=== PATIENT | male | born 1975 | race Native Hawaiian/Other Pacific Islander ===

== ENCOUNTER 2024-02-09 19:32 | Emergency (ER) | payer OTHER ==
--- NOTE | 2024-02-09 20:01 | ER ---
Nurse's Notes [facility] Name: Hemal Lang Age: 48 yrs Sex: Male : 1975 Arrival Date: 02/09/2024 Time: 19:32 Bed 8 Private MD: Diagnosis: Anasarca;Hypoxia Presentation: 02/08 19:24 Chief complaint: EMS states: c/o pain all over. Normally takes tylenol 3 for pain but me1 he is out. Room air o2 sat was 90%, administered o2 at \T\ LPM via NC to bring sat to 96%. Coronavirus screen: Vaccine status: Patient reports being unvaccinated. Ebola Screen: No symptoms or risks identified at this time. Initial Sepsis Screen: Does the patient meet any 2 criteria? Yes No. Patient's initial sepsis screen is negative. Does the patient have a suspected source of infection? No. Patient's initial sepsis screen is negative. Risk Assessment: Do you want to hurt yourself or someone else? Patient reports no desire to harm self or others. Onset of symptoms is unknown. 19:24 Method Of Arrival: [place] [facility] [place] Acuity: ANNIE 4 me1 Triage Assessment: 19:38 General: Appears uncomfortable, obese, unkempt, well developed, Behavior is me1 cooperative, appropriate for age, anxious, restless, Reports He ran out of his normal pain meds, tylenol 3, and has pain all over that has become unbearable. Pain: Complains of pain in generalized Pain does not radiate. Pain currently is 10 out of 10 on a pain scale. Quality of pain is described as aching, Pain began 2-3 days ago. Is continuous. EENT: No signs and/or symptoms were reported regarding the EENT system. Neuro: Level of Consciousness is awake, alert, obeys commands, Oriented to person, place, time, situation, Appropriate for age. Cardiovascular: Patient's skin is warm and dry. Respiratory: Airway is patent Trachea midline Respiratory effort is even, unlabored, Respiratory pattern is regular, symmetrical. GI: No signs and/or symptoms were reported involving the gastrointestinal system. : No signs and/or symptoms were reported regarding the genitourinary system. Derm: Skin is healthy with good turgor, Skin is pink, warm \T\ dry. Musculoskeletal: Amputation of Right AKA, L BKA. Reports pain in generalized. Historical: - Allergies: 19:38 PENICILLINS; me1 19:38 Amoxicillin; me1 - PMHx: 19:38 Congestive heart failure; Diabetes mellitus; me1 - PSHx: 19:38 right AKA; L BKA; me1 - Immunization history:: Adult Immunizations unknown. - Infectious Disease History:: Denies. - Social history:: Smoking status: Patient/guardian denies using tobacco, but has a distant history of tobacco abuse. - Family history:: not pertinent. Screenin:42 [facility] ED Fall Risk Assessment (Adult) History of falling in the last 3 months, me1 including since admission No falls in past 3 months (0 pts) Confusion or Disorientation No (0 pts) Intoxicated or Sedated No (0 pts) Impaired Gait Yes (1 pt) Mobility Assist Device Used Yes (1 pt) Altered Elimination Yes (1 pt) Score/Fall Risk Level 3 or more points = High Risk Maintained a safe environment, Hourly rounding (assess needs \T\ fall precautionary measures) done, Used ambulatory aids as needed (educated on \T\ assisted with). Abuse screen: Denies threats or abuse. Nutritional screening: No deficits noted. Tuberculosis screening: No symptoms or risk factors identified. Assessment: 19:43 General: See triage assessment. . me1 21:59 General: Report given to ELINOR Rodriguez. me1 Vital Signs: 19:24 BP 104 / 79; Pulse 99; Resp 19; Temp 97.9(TE); Pulse Ox 96% 2 lpm ; Weight 242.22 kg; me1 Height 5 ft. 9 in. ; Pain 10/10; 20:00 BP 119 / 73; Pulse 96; Resp 20; Pulse Ox 90% on R/A; me1 21:00 BP 142 / 72; Pulse 106; Resp 21; Pulse Ox 90% on R/A; me1 21:18 Pulse Ox 98% on 3 lpm NC; me1 21:21 Pulse Ox 98% on 3 lpm NC; me1 21:30 BP 141 / 78; Pulse 111; Resp 22; Pulse Ox 98% on 3 lpm NC; me1 22:00 BP 139 / 85; Pulse 110; Resp 15; Temp 98.1; Pulse Ox 100% on 3 lpm NC; me1 19:24 Body Mass Index 78.86 (242.22 kg, 175.26 cm) me1 19:24 Pain Scale: [place] [facility] [place] Course: 19:34 Patient arrived in ED. me1 19:34 Armando Lopez MD is Attending Physician. rt 19:38 Triage completed. me1 19:38 Arm band placed on Patient placed in an exam room. me1 19:42 Patient has correct armband on for positive identification. Bed in low position. Call vt1 light in reach. Side rails up X2. Provided Education on: POC. Verbalized understanding. . Client placed on continuous cardiac and pulse oximetry monitoring. NIBP monitoring applied. Pulse ox on. NIBP on. 19:42 No provider procedures requiring assistance completed. me1 19:54 Vanessa Westfall, ELINOR is Primary Nurse. me1 20:04 EKG done, by ED staff, reviewed by Armando Lopez MD. me1 20:07 Inserted saline lock: 20 gauge in right antecubital area, using aseptic technique. rc3 Blood collected. 20:08 Basic Metabolic Panel Sent. rc3 20:08 CBC with Diff Sent. rc3 20:08 LFT's Sent. rc3 20:08 Magnesium Sent. rc3 20:08 NT PRO-BNP Sent. rc3 20:08 Troponin HS Sent. rc3 20:14 XRAY Chest (1 view) In Process Unspecified. EDMS 20:46 initiated transfer lori Walsh\[facility]. kmf 21:13 doc to doc. kmf 21:33 Antonio cath inserted, using sterile technique, 18 Fr., by vt, balloon inflated, to [facility] gravity drainage, Patient tolerated well. 22:31 Patient transferred, IV remains in place. [facility] 02/[place] 00:[address] [facility]. Admin approval given by lori \Biju\[id number]. Dr. Reynaga accepted \T\ f 2123. Number for nurse to nurse report [phone]. [facility] room 1054. [facility] to transfer . Administered Medications: 02/08 20:17 Drug: Furosemide IVP 40 mg IVP once; give over 2 minutes Route: IVP; Site: right vt1 antecubital; 21:20 Follow up: Response: No adverse reaction; Pain is decreased [facility] 20:17 Drug: [place] PO 10 mg-325 mg 1 tabs PO once Route: PO; me1 21:18 Follow up: Pulse Ox 98% 3 lpm Nasal Cannula me1 Medication: 19:44 VIS not applicable for this client. me1 Outcome: 20:01 Discharge ordered by . rt 20:47 ER care complete, transfer ordered by MD. rt 22:31 Transferred by ground EMS to [facility], Transfer form completed. me1 22:31 Condition: stable 22:31 Instructed on the need for transfer, 22:32 Patient left the ED. me1 Signatures: Dispatcher [employer] EDArmando Webb MD MD rt Vanessa Westfall RN RN me1 Lili Batista [facility] Vanna Sloan 3 Corrections: (The following items were deleted from the chart) 21:21 21:18 Response: No adverse reaction me1 me1
--- NOTE | 2024-02-09 20:01 | EDPHYS ---
Physician Documentation [facility] Name: Hemal Lang Age: 48 yrs Sex: Male : 1975 Arrival Date: 02/09/2024 Time: 19:32 Bed 8 Private MD: ED Physician Armando Lopez HPI: 02/08 20:47 This 48 yrs old Male presents to ER via EMS with complaints of Pain All Over. rt 20:47 Patient presents to the ED with worsening jaw swelling, pain. Patient reportedly had rt hypoxia. Sats were 89 to 90% on room air, correcting with supplemental O2. Patient states that his Bumex, metolazone has not been adequately diuresing him. Denies other acute complaints at this time, symptoms are moderate in severity, no other aggravating or alleviating factors.. Historical: - Allergies: 19:38 PENICILLINS; me1 19:38 Amoxicillin; me1 - PMHx: 19:38 Congestive heart failure; Diabetes mellitus; me1 - PSHx: 19:38 right AKA; L BKA; me1 - Immunization history:: Adult Immunizations unknown. - Infectious Disease History:: Denies. - Social history:: Smoking status: Patient/guardian denies using tobacco, but has a distant history of tobacco abuse. - Family history:: not pertinent. ROS: 20:47 Constitutional: Negative for fever, chills, and weight loss, Abdomen/GI: Negative for rt abdominal pain, nausea, vomiting, diarrhea, and constipation, MS/Extremity: Negative for injury and deformity, 20:47 Cardiovascular: Positive for edema, Negative for chest pain, 20:47 Respiratory: Positive for cough, shortness of breath, Exam: 20:47 Constitutional: This is a well developed, well nourished patient who is awake, alert, rt and in no acute distress. Head/Face: Normocephalic, atraumatic. Chest/axilla: Normal chest wall appearance and motion. Nontender with no deformity. No lesions are appreciated. 20:47 ECG was reviewed by the Attending Physician. 20:47 Respiratory: Bibasilar crackles, 20:47 Abdomen/GI: Edema with skin changes to the abdominal wall, 20:47 Musculoskeletal/extremity: Bilateral BKA's, edema noted to the lower extremities. 20:47 Skin: Edematous regions of skin are leaking clear fluid. Vital Signs: 19:24 BP 104 / 79; Pulse 99; Resp 19; Temp 97.9(TE); Pulse Ox 96% 2 lpm ; Weight 242.22 kg; me1 Height 5 ft. 9 in. ; Pain 10/10; 20:00 BP 119 / 73; Pulse 96; Resp 20; Pulse Ox 90% on R/A; me1 21:00 BP 142 / 72; Pulse 106; Resp 21; Pulse Ox 90% on R/A; me1 21:18 Pulse Ox 98% on 3 lpm NC; me1 21:21 Pulse Ox 98% on 3 lpm NC; me1 21:30 BP 141 / 78; Pulse 111; Resp 22; Pulse Ox 98% on 3 lpm NC; me1 22:00 BP 139 / 85; Pulse 110; Resp 15; Temp 98.1; Pulse Ox 100% on 3 lpm NC; me1 19:24 Body Mass Index 78.86 (242.22 kg, 175.26 cm) me1 19:24 Pain Scale: Adult me1 MDM: 19:44 Patient medically screened. rt 20:47 Differential Diagnosis CHF, anasarca, pulmonary edema. Data reviewed: vital signs, rt nurses notes, lab test result(s), EKG, radiologic studies. Consideration of Admission/Observation Patient requires transfer due to weather event. I considered the following discharge prescriptions or medication management in the emergency department Medications were administered in the Emergency Department. See MAR. Independent interpretation of the following test(s) in the Emergency Department X-Ray: My interpretation is Pulmonary edema seen on interpretation of x-ray images. Test considered but Not performed: CT: Low suspicion for PE, CT angiogram not indicated. Care significantly affected by the following chronic conditions: CHF, diabetes, A-fib. Counseling: I had a detailed discussion with the patient and/or guardian regarding the historical points, exam findings, and any diagnostic results supporting the discharge/admit diagnosis, lab results, radiology results, the need to transfer to another facility. Response to treatment: There is no appreciated change of the patient's symptoms at this time. 02/08 19:50 Order name: Basic Metabolic Panel; Complete Time: 20:35 rt 02/08 19:50 Order name: CBC with Diff; Complete Time: 20:30 rt 02/08 19:50 Order name: LFT's; Complete Time: 20:35 rt 02/08 19:50 Order name: Magnesium; Complete Time: 20:35 rt 02/08 19:50 Order name: NT PRO-BNP; Complete Time: 20:35 rt 02/08 19:50 Order name: Troponin HS; Complete Time: 20:35 rt 02/08 19:50 Order name: XRAY Chest (1 view); Complete Time: 20:42 rt 02/08 19:50 Order name: Cardiac monitoring; Complete Time: 20:04 rt 02/08 19:50 Order name: EKG - Nurse/Tech; Complete Time: 20:04 rt 02/08 19:50 Order name: IV Saline Lock; Complete Time: 20:08 rt 02/08 19:50 Order name: Labs collected and sent; Complete Time: 20:08 rt 02/08 19:50 Order name: O2 Per Protocol; Complete Time: 20:04 rt 02/08 19:50 Order name: O2 Sat Monitoring; Complete Time: 20:04 rt 02/08 20:05 Order name: Antonio; Complete Time: 21:33 rt EC:47 Rate is 100 beats/min. Rhythm is regular, A fib with No ectopy, Right bundle branch rt block. QRS [place] is Normal. QRS interval is normal. QT interval is normal. Administered Medications: 20:17 Drug: Furosemide IVP 40 mg IVP once; give over 2 minutes Route: IVP; Site: right me1 antecubital; 21:20 Follow up: Response: No adverse reaction; Pain is decreased me1 20:17 Drug: [place] PO 10 mg-325 mg 1 tabs PO once Route: PO; me1 21:18 Follow up: Pulse Ox 98% 3 lpm Nasal Cannula me1 Disposition Summary: 02/09/24 20:47 Transfer Ordered Notes: Transfer Location: [facility] rt Reason: Higher level of care rt Condition: Stable(02/09/24 20:47) rt Problem: an ongoing problem(02/09/24 20:47) rt Symptoms: are unchanged(02/09/24 20:47) rt Accepting Physician: (02/09/24 22:32) me1 Diagnosis - Anasarca rt - Hypoxia rt Forms: - Medication Reconciliation Form rt - SBAR form rt Signatures: Dispatcher [employer] EDMS Armando Lopez MD MD rt Vanessa Westfall, RN RN me1 Corrections: (The following items were deleted from the chart) 19:51 19:51 BASIC METABOLIC PANEL+C.LAB.BRZ ordered. EDMS EDMS 19:51 19:51 CBC+H.LAB.BRZ ordered. EDMS EDMS 19:51 19:51 HEPATIC FUNCTION+C.LAB.BRZ ordered. EDMS EDMS 19:51 19:51 MAGNESIUM+C.LAB.BRZ ordered. EDMS EDMS 19:51 19:51 PROBNP+C.LAB.BRZ ordered. EDMS EDMS 19:51 19:51 Troponin High Sensitivity+C.LAB.BRZ ordered. EDMS EDMS 19:51 19:51 Chest Single View+RAD.RAD.BRZ ordered. EDMS EDMS 20:01 20:01 Home rt rt 20:01 20:01 new rt rt 20:01 20:01 have improved rt rt 20:01 20:01 Stable rt rt 20:01 20:01 Heat exhaustion, unspecified rt rt 22:32 20:47 Dr. rt me1
[2024-02-09] MEDS ORDERED: FUROSEMIDE 40 MG/4 ML VIAL ONE (20:08)
[2024-02-09] MEDS ORDERED: HYDROCODONE/APAP 10/325 TAB ONE (20:08)
[2024-02-09 20:14] LABS: Absolute Basophils 0.1 K/uL (0-0.5); Absolute Eosinophils 0.1 K/uL (0-0.5); Absolute Lymphocytes (CBC) 0.5 K/uL (0.7-4.9); Absolute Neutrophil 7.9 K/uL (1.8-8.0); Eosinophils % 1.4 % (0-4.4); Hematocrit 32.7 % (39.6-49.0); Hemoglobin 10.3 g/dL (13.6-17.9); MCH 26.4 pg (27.0-35.0); MCHC 31.6 g/dL (32.0-36.0); MCV 83.7 fL (80-100); MPV 8.6 fL (7.6-11.3); Monocytes % 10.5 % (3.3-12.3); Neutrophils % 82.1 % (41.7-73.7); Platelets 136 thou/uL (152-406); Red Cell Distribution Width 17.1 % (12.1-15.2)
[2024-02-09 20:34] LABS: Albumin 2.1 g/dL (3.4-5.0); Albumin/Globulin Ratio 0.5 (1.1-1.8); Anion Gap 6.4 mEq/L (5.0-15.0); Bilirubin Direct 0.3 mg/dL (0-0.2); Bilirubin Indirect, Calculated 0.2 mg/dL (0.2-0.8); Bilirubin Total 0.5 mg/dL (0.2-1.0); Globulin 4.5 g/dL (2.3-3.5); Potassium 3.4 mEq/L (3.5-5.1); Protein, Total 6.6 g/dL (6.4-8.2); Troponin High Sensitivity 16.8 pg/mL (<58.9)
--- NOTE | 2024-02-09 20:40 | RAD REPORT ---
EXAM DESCRIPTION: Massimo Single View02/09/2024 8:12 pm CLINICAL HISTORY: Chest pain COMPARISON: none FINDINGS: Pulmonary vascular congestion is present. The lungs appear clear of acute infiltrate Heart is mildly to moderately enlarged
[2024-02-09 23:14] VITALS: BP 139/85; TEMP 98.1; O2SAT 100
--- NOTE | 2024-02-12 12:17 | EKG ---
Test Date: 2024-02-09 Test Time: 20:01:00 Press Setup Operator: MEASUREMENT RESULTS: Intervals: Rate: 100 AK: QRSD: 102 QT: 394 QTc: 508 [place]: P: AK: QRS: 222 T: 110 INTERPRETIVE STATEMENTS: Atrial fibrillation Right superior axis deviation Incomplete right bundle branch block Right ventricular hypertrophy Septal infarct, age undetermined Prolonged QT Abnormal ECG No previous ECG available for comparison Electronically Signed On 02-12-24 12:12:36 CDT by Hamilton Berrios
== END 2024-02-09 22:32 | disposition short-term general hospital (02) ==
LOC: ER 19:32
DX: R60.1 Generalized edema (principal); R09.02 Hypoxemia; E11.9 Type 2 diabetes mellitus without complications; Z88.0 Allergy status to penicillin
CPT/HCPCS: 93005; 85025; 80048; 36415; 83735; 80076; 84484; 83880; 71045; 51702; 96374; 99285; J1940

== ENCOUNTER 2024-04-03 21:41 | Inpatient (IN) | payer OTHER ==
[2024-04-03 23:12] LABS: Sqamous Epithelial <5 /HPF (None Seen); Urine Bacteria None Seen /HPF (<20); Urine Crystals Unidentified Few /HPF (None Seen); Urine Culture Reflex Order NOT NEEDED; Urine RBC <5 /HPF (None Seen); Urine WBC None Seen /HPF (<5)
[2024-04-03] MEDS ORDERED: CEFTRIAXONE 1000 MG/VIAL ONE (23:13)
[2024-04-03] MEDS ORDERED: metroNIDAZOLE 500 MG TABLET ONE (23:14)
[2024-04-03] MEDS ORDERED: FUROSEMIDE 20 MG/ 2ML VIAL ONE (23:14)
[2024-04-03] MEDS ORDERED: FUROSEMIDE 40 MG/4 ML VIAL ONE (23:14)
[2024-04-03] MEDS ORDERED: FLUCONAZOLE 100 MG TAB ONE (23:14)
[2024-04-03] MEDS ORDERED: MUPIROCIN 2% OINT 22GM TUBE TOP ONE (23:14)
[2024-04-03] MEDS ORDERED: METRONIDAZOLE 500mg IVPB 500 MG/100 ML BAG IV ONE (23:15)
[2024-04-03 23:16] LABS: PT Prothrombin Time 13.9 SECONDS (9.4-12.5); PTT, Activated Partial Thromb 34.1 SECONDS (24.3-36.9); Protime INR 1.25
[2024-04-03 23:16] LABS: Specific Gravity 1.008 (1.005-1.030); Urine Bilirubin NEGATIVE (Negative); Urine Blood Negative (Negative); Urine Clarity Clear (Clear); Urine Color Colorless (Yellow); Urine Glucose NEGATIVE (Negative); Urine Ketones NEGATIVE (Negative); Urine Microscopic Reflex YN NO UMIC; Urine Nitrite NEGATIVE (Negative); Urine Protein NEGATIVE (Negative); Urine Urobilinogen Normal (Normal); Urine pH 6.5 (5.0-7.0)
[2024-04-03 23:20] LABS: Absolute Basophils 0.1 K/uL (0-0.5); Absolute Eosinophils 0.3 K/uL (0-0.5); Absolute Lymphocytes (CBC) 0.5 K/uL (0.7-4.9); Absolute Monocytes 0.6 K/uL (0.1-1.3); Absolute Neutrophil 3.6 K/uL (1.8-8.0); Eosinophils % 5.5 % (0-4.4); Hemoglobin 9.2 g/dL (13.6-17.9); Lymphocytes % 10.8 % (15.3-44.8); MCH 26.4 pg (27.0-35.0); MCHC 31.5 g/dL (32.0-36.0); MCV 83.8 fL (80-100); MPV 9.3 fL (7.6-11.3); Monocytes % 11.6 % (3.3-12.3); Neutrophils % 71.1 % (41.7-73.7); Platelets 152 thou/uL (152-406); RBC Red Blood Cell Count 3.46 M/uL (4.33-5.43); Red Cell Distribution Width 18.3 % (12.1-15.2)
[2024-04-03 23:35] LABS: Albumin 1.8 g/dL (3.4-5.0); Albumin/Globulin Ratio 0.4 (1.1-1.8); Anion Gap 5.6 mEq/L (5.0-15.0); Bilirubin Total 0.6 mg/dL (0.2-1.0); C-Reactive Protein 13.2 mg/L (<3.00); Globulin 4.5 g/dL (2.3-3.5); Protein, Total 6.3 g/dL (6.4-8.2); Troponin High Sensitivity 22.7 pg/mL (<58.9)
[2024-04-03 23:38] LABS: Thyroid Stimulating Hormone 6.7 uIU/mL (0.358-3.740)
[2024-04-03 23:39] LABS: Potassium 2.6 mEq/L (3.5-5.1)
--- NOTE | 2024-04-04 00:24 | ER ---
Nurse's Notes [facility] Name: Hemal Lang Age: 48 yrs Sex: Male : 1975 Arrival Date: 04/03/2024 Time: 21:41 Bed 4 Private MD: Diagnosis: Hypokalemia;Acute on chronic combined systolic (congestive) and diastolic (congestive) heart failure;Volume Overload, physical deconditioning, tinea cruris, tinea corporis, morbid obesity, Non ambulatory status Presentation: 04/03 22:01 Chief complaint: EMS states: Pt is complaining of fluid overload and had seen his PCP 2 kd3 weeks ago with no improvement. Pt states that he has had some issues breathing. Vital signs are stable, no open pressure wounds on the back side. PT is alert and oriented and speaking in full and complete sentences. Coronavirus screen: Vaccine status: unknown. Ebola Screen: No symptoms or risks identified at this time. Initial Sepsis Screen: Does the patient meet any 2 criteria? No. Patient's initial sepsis screen is negative. Does the patient have a suspected source of infection? No. Patient's initial sepsis screen is negative. Risk Assessment: Do you want to hurt yourself or someone else? Patient reports no desire to harm self or others. Onset of symptoms was April 03, 2024. 22:01 Method Of Arrival: EMS: [facility] kd3 22:01 Acuity: ANNIE 3 kd3 Triage Assessment: 22:11 General: Appears in no apparent distress. Behavior is calm, cooperative. Pain: Denies kd3 pain. Historical: - Allergies: 22:10 Amoxicillin; kd3 22:10 PENICILLINS; kd3 - PMHx: 22:10 Congestive heart failure; diabetes mellitus; kd3 - PSHx: 22:10 L BKA; right AKA; kd3 - Immunization history:: Adult Immunizations up to date. - Infectious Disease History:: Denies. - Social history:: Smoking status: unknown. - Family history:: not pertinent. Screenin:49 [facility] ED Fall Risk Assessment (Adult) History of falling in the last 3 months, kd3 including since admission No falls in past 3 months (0 pts) Confusion or Disorientation No (0 pts) Intoxicated or Sedated No (0 pts) Impaired Gait Yes (1 pt) Mobility Assist Device Used Yes (1 pt) Altered Elimination No (0 pt) Score/Fall Risk Level 0 - 2 = Low Risk Oriented to surroundings. Abuse screen: Denies threats or abuse. Denies injuries from another. Nutritional screening: No deficits noted. Tuberculosis screening: No symptoms or risk factors identified. Assessment: 23:49 General: Appears uncomfortable, Behavior is calm, cooperative. Neuro: Level of kd3 Consciousness is awake, alert, obeys commands, Oriented to person, place, time, situation. Cardiovascular: Patient's skin is warm and dry. Respiratory: Airway is patent Trachea midline Respiratory effort is even, unlabored, Respiratory pattern is regular, symmetrical. Vital Signs: 22:01 BP 131 / 71; Pulse 102; Resp 16; Temp 98.2(O); Pulse Ox 98% on R/A; Weight 239.04 kg; kd3 23:32 BP 113 / 80; Pulse 94; Resp 19; Pulse Ox 95% on R/A; kd3 23:52 BP 109 / 60; Pulse 106; Resp 16; Pulse Ox 93% on R/A; kd3 04/04 00:48 BP 136 / 69; Pulse 93; Resp 19; Pulse Ox 99% on R/A; kd3 04:37 BP 128 / 75; Pulse 84; Resp 19; Pulse Ox 99% on R/A; kd3 [place] Coma Score: 00:14 Eye Response: spontaneous(4). Motor Response: obeys commands(6). Verbal Response: sp4 oriented(5). Total: 15. ED Course: 04/03 21:57 Patient arrived in ED. rv1 21:57 Augustina Winkler, ELINOR is Primary Nurse. kd3 21:57 Rich Barroso MD is Attending Physician. sp4 22:10 Triage completed. kd3 22:11 Arm band placed on. kd3 22:11 Antonio cath inserted, using sterile technique, 16 Fr., by ED staff, balloon inflated, to kd3 gravity drainage, Patient tolerated well. 23:07 Chest Single View XRAY In Process Unspecified. EDMS 23:07 BNP Sent. kd3 23:07 Troponin High Sensitivity Sent. kd3 23:08 Urinalysis w/ reflexes Sent. kd3 23:08 Ptt, Activated Sent. kd3 23:08 Protime (+inr) Sent. kd3 23:08 Lactate w/ 2H reflex if indic. Sent. kd3 23:08 CMP Sent. kd3 23:08 CBC with Diff Sent. kd3 23:08 Blood Culture Adult (2) Sent. kd3 23:08 CK Sent. kd3 23:08 CRP Sent. kd3 23:08 TSH Sent. kd3 23:08 T4 Free Sent. kd3 23:09 Assisted provider with central line placement. Set up central line tray. Triple lumen kd3 line placed in right internal jugular. Line placed by Rich Barroso MD Placement verified by CXR, blood return, Dressed with Tegaderm, Blood was collected. Patient tolerated well. Before procedure, did Practitioner(s) obtain informed consent? Yes. Patient \T\ family education about procedure, CLABSI prevention and S/S of infection? Yes. Time-out/Briefing performed prior to start of procedure? Yes. Was handwashing/sanitizing done immediately prior to procedure? Yes. Was patient positioned to in a way to prevent air embolism? Yes. Was procedure site sterilized? Yes, with chlorhexidine. Was the site allowed to dry? Yes. Was local anesthetic and/or sedation utilized? Yes. During the procedure, did the Practitioner(s) maintain a sterile field? Yes. Were unused ports clamped during insertion? Yes. Was blood aspirated from each lumen? Yes. After the procedure, did the Practitioner(s) clean the site and apply a sterile dressing? Yes. 23:10 Inserted Central line to the right neck. kd3 23:50 Patient has correct armband on for positive identification. Provided Education on: kd3 Antonio and central line placement . 04/04 00:22 Hernan Thomas MD is Hospitalizing Provider. sp4 04:38 Patient admitted, IV remains in place. kd3 Administered Medications: 04/03 23:17 Not Given (Physician Discretion): mupirocinointment 2 % 1 application Topical once kd3 23:32 Drug: Rocephin - Rocephin (cefTRIAXone) IVPB 1 grams IVPB once over 30 mins; (mix in 50 kd3 mL NS) Route: IVPB; Infused Over: 30 mins; Site: right jugular; 23:32 Drug: Furosemide IVP 60 mg IVP once; give over 2 minutes Route: IVP; Site: right kd3 jugular; 23:32 Drug: Fluconazole PO 200 mg PO once Route: PO; kd3 23:32 Drug: metroNIDAZOLE IVPB 500 mg 100 ml IVPB at 200 ml/hr once over 30 mins Volume: 100 kd3 ml; Route: IVPB; Rate: 200 ml/hr; Infused Over: 30 mins; Site: right jugular; 04/04 00:45 Drug: Ondansetron IVP 4 mg IVP once; over 2 minutes Route: IVP; Site: right jugular; kd3 00:46 Drug: Potassium Chloride IV 40 mEq IV at calculated rate once; administer over 1-2 kd3 hours Route: IV; Rate: calculated rate; Site: right jugular; 00:46 Drug: Potassium Chloride PO 40 mEq PO once Route: PO; kd3 00:46 Drug: Furosemide IVP 20 mg IVP once; give over 2 minutes Route: IVP; Site: right kd3 jugular; 00:46 Drug: morphine IVP or IV 4 mg IVP once over 4 mins Route: IVP; Infused Over: 4 mins; kd3 Site: right jugular; Medication: 04/03 23:50 VIS not applicable for this client. kd3 Output: 23:58 Urine: 1300ml (Antonio); Total: 1300ml. kd3 04/04 01:01 Urine: 1600ml (Antonio); Total: 2900ml. kd3 Outcome: 00:23 Decision to Hospitalize by Provider. sp4 04:37 Admitted to Med/surg kd3 04:37 Condition: stable 04:37 Discharge instructions given to patient, Instructed on the need for admit, Demonstrated understanding of instructions, 04:38 Patient left the ED. kd3 Signatures: Dispatcher [employer] Augustina Neri RN RN kd3 Vanna Strickland rv1 Rich Barroso MD MD sp4
--- NOTE | 2024-04-04 00:24 | EDPHYS ---
Physician Documentation [facility] Name: Hemal Lang Age: 48 yrs Sex: Male : 1975 Arrival Date: 04/03/2024 Time: 21:41 Bed 4 Private MD: ED Physician Rich Barroso HPI: 04/04 00:04 This 48 yrs old Male presents to ER via EMS with complaints of Dyspnea and sp4 generalized swelling . 00:04 48-year-old male with history of morbid obesity congestive heart failure and diabetes sp4 presents with generalized edema and shortness of breath. Patient states that edema has been accumulating for the past 2 weeks. Patient has history of bilateral below-knee amputations secondary to prior complications of diabetes. Patient's medications include metolazone 5 mg p.o. daily, Bumex 4 mg in the morning, 2 mg in the afternoon, 2 mg in the evening, metoprolol extended release 25 mg daily, pregabalin 75 mg 3 times a day, at this time also ciprofloxacin 250 mg p.o. twice daily day 3 of antibiotic. Patient reports she was on Eliquis but had to discontinue it several months ago secondary to profuse bleeding. . Historical: - Allergies: 04/03 22:10 Amoxicillin; kd3 22:10 PENICILLINS; kd3 - PMHx: 22:10 Congestive heart failure; diabetes mellitus; kd3 - PSHx: 22:10 L BKA; right AKA; kd3 - Immunization history:: Adult Immunizations up to date. - Infectious Disease History:: Denies. - Social history:: Smoking status: unknown. - Family history:: not pertinent. ROS: 04/04 00:04 Constitutional: Negative for fever, chills, and weight loss, positive edema and sp4 positive shortness of breath All other systems are negative, Exam: 00:14 Constitutional: Patient is morbidly obese male, nonambulatory, severe physical sp4 deconditioning, bilateral below-knee amputee, diffuse generalized edema with lower abdominal swelling scrotal swelling, bilateral lower extremity stump swelling, moderate discomfort with associated multiple areas of fungal rash in intertriginous areas. Head/Face: Normocephalic, atraumatic. Eyes: Pupils equal round and reactive to light, extra-ocular motions intact. Lids and lashes normal. Conjunctiva and sclera are not injected. Cornea within normal limits. Periorbital areas with no swelling, redness, or edema. ENT: Nares patent. No nasal discharge, no septal abnormalities noted. Tympanic membranes are normal and external auditory canals are clear. Oropharynx with no redness, swelling, or masses, exudates, or evidence of obstruction, uvula midline. Mucous membranes moist. Neck: Trachea midline, no thyromegaly or masses palpated, and no cervical lymphadenopathy. Supple, full range of motion without nuchal rigidity, or vertebral point tenderness. Chest/axilla: Normal chest wall appearance and motion. Nontender with no deformity. No lesions are appreciated. Cardiovascular: Regular rate and rhythm with a normal S1 and S2. No gallops, murmurs, or rubs. Normal PMI, positive JVD, exam difficult secondary to body habitus Respiratory: Lungs have equal breath sounds bilaterally, clear to auscultation and percussion. Tachypnea Abdomen/GI: Soft, with normal bowel sounds. No distension or tympany. No guarding or rebound. No evidence of tenderness throughout. Obese abdomen with diffuse lower abdominal edema Back: No spinal tenderness. No costovertebral tenderness. Male : Diffuse moderate to severe scrotal swelling with retracted penis Skin: Warm, dry with normal turgor. Normal color with multiple areas of intertriginous fungal rash distant with tinea cruris tenia corporis as well. MS/ Extremity: Pulses equal, no cyanosis. Neurovascular intact. Bilateral lower extremity below-knee amputations Neuro: Awake and alert, GCS 15, oriented to person, place, time, and situation. Cranial nerves II-XII grossly intact. Motor strength 5/5 in all extremities. Sensory grossly intact. Psych: Awake, alert, with orientation to person, place and time. Behavior, mood, and affect are within normal limits 00:14 ECG was reviewed by the Attending Physician. EKG at 2225 atrial fibrillation with PVCs, rate [address] elevation or depression Vital Signs: 04/03 22:01 BP 131 / 71; Pulse 102; Resp 16; Temp 98.2(O); Pulse Ox 98% on R/A; Weight 239.04 kg; kd3 23:32 BP 113 / 80; Pulse 94; Resp 19; Pulse Ox 95% on R/A; kd3 23:52 BP 109 / 60; Pulse 106; Resp 16; Pulse Ox 93% on R/A; kd3 04/04 00:48 BP 136 / 69; Pulse 93; Resp 19; Pulse Ox 99% on R/A; kd3 04:37 BP 128 / 75; Pulse 84; Resp 19; Pulse Ox 99% on R/A; kd3 Brooke Coma Score: 00:14 Eye Response: spontaneous(4). Motor Response: obeys commands(6). Verbal Response: sp4 oriented(5). Total: 15. Procedures: 00:04 Central Line: the site was prepped with in sterile fashion, Hibiclens prep , a triple sp4 lumen catheter was inserted, in the right internal jugular vein, in 1 attempts. placement was verified, by CXR, by blood return, Ultrasound-guided central line, the site was dressed with 4X4s, Tegaderm, using sterile technique, the patient tolerated the procedure, well, Triple-lumen central line was placed with ultrasound guidance right internal jugular location secondary to exhausted IV access. 00:14 Antonio cath inserted by myself - 16 Fr. Urine output = 500 ml's. Patient tolerated well. sp4 MDM: 04/03 22:03 Patient medically screened. sp4 04/04 00:13 Differential diagnosis: Anemia Anxiety Reaction asthma, Bronchitis CHF exacerbation, sp4 Chronic Obstructive Pulmonary Disease pneumonia, Psychogenic. Antibiotic administration: Rocephin and Flagyl given . Data reviewed: vital signs, nurses notes, EMS record, old medical records, lab test result(s), EKG, radiologic studies. ED course: EXAM DESCRIPTION: Chest Single View CLINICAL HISTORY: CHEST PAIN COMPARISON: None. FINDINGS: 1 view(s) of the chest. Tubes and lines: Leads overlie the chest. Right IJ central venous catheter tip in the SVC. Cardiomediastinal silhouette: Atherosclerotic calcification of thoracic aorta. Cardiomegaly. Lungs: Pulmonary vascular congestion. Bilateral interstitial opacities. Low lung volumes. No pneumothorax. No definite effusion. Bones: No acute osseous abnormality. Degenerative change of the spine and shoulders. Upper abdomen: No abnormality identified. IMPRESSION: Cardiomegaly with pulmonary edema pattern. Electronically signed by: Efe Montilla DO 04/03/2024 11:18 PM. ED course: Patient was considered for admission here for CHF management. . 00:14 Consideration of Admission/Observation Patient was admitted/placed on observation. sp4 Escalation of care including admission/observation considered. Management of patient was discussed with the following: Hospitalist: Hernan OLIVARES . ED course: 48-year-old male who is suffering from morbid obesity, bilateral lower extremity amputee, congestive heart failure diabetes and history of A-fib , with generalized edema shortness of breath and signs of heart failure. Has also moderate amount of intertriginous fungal rash. Patient states he is compliant with his bumetanide 4 mg in the morning and 4 mg in the day. Patient takes total of 8 mg Bumex daily. Was found to be hypokalemic potassium was replaced p.o. and IV. Patient was discussed with hospitalist and admission was requested for congestive heart failure management associated with volume overload. 04/03 21:58 Order name: BNP; Complete Time: 23:52 4 04/03 21:58 Order name: Troponin High Sensitivity; Complete Time: 23:52 4 04/03 21:59 Order name: Blood Culture Adult (2) sp4 04/03 21:59 Order name: CBC with Diff; Complete Time: 23:52 4 04/03 21:59 Order name: CMP; Complete Time: 23:52 4 04/03 21:59 Order name: Lactate w/ 2H reflex if indic.; Complete Time: 23:52 4 04/03 21:59 Order name: Protime (+inr); Complete Time: 23:52 4 04/03 21:59 Order name: Ptt, Activated; Complete Time: 23:52 4 04/03 21:59 Order name: Urinalysis w/ reflexes; Complete Time: 23:52 4 04/03 21:59 Order name: CK; Complete Time: 23:52 sp4 04/03 21:59 Order name: CRP; Complete Time: 23:52 4 04/03 22:02 Order name: TSH; Complete Time: 23:52 sp4 04/03 22:02 Order name: T4 Free; Complete Time: 23:52 sp4 04/04 00:42 Order name: CBC with Automated Diff EDMS 04/04 00:42 Order name: CBC with Automated Diff EDMS 04/04 00:42 Order name: Comprehensive Metabolic Panel EDMS 04/04 00:42 Order name: Comprehensive Metabolic Panel EDMS 04/04 00:42 Order name: Troponin High Sensitivity EDMN 04/04 00:42 Order name: Troponin High Sensitivity EDMN 04/04 00:47 Order name: Comprehensive Metabolic Panel EDMN 04/04 00:47 Order name: Comprehensive Metabolic Panel [facility] 04/03 21:59 Order name: Chest Single View XRAY [facility] 04/03 21:58 Order name: Central Line Dressing Kit; Complete Time: 23:08 sp4 04/03 21:58 Order name: Central Line Kit; Complete Time: 23:08 sp4 04/03 21:58 Order name: Chlorhexidine prep; Complete Time: 23:07 sp4 04/03 21:58 Order name: Consent for central line completed; Complete Time: 22:15 sp4 04/03 21:58 Order name: Line Caps x3; Complete Time: 23: sp4 04/03 21:58 Order name: NS Flushes x3; Complete Time: 23:07 sp4 04/03 21:58 Order name: Sterile Gloves; Complete Time: 23: sp4 04/03 21:58 Order name: Sterile Probe Cover; Complete Time: 23: sp4 04/03 21:59 Order name: Accucheck; Complete Time: 23:33 sp4 04/03 21:59 Order name: Cardiac monitoring; Complete Time: 23:08 4 04/03 21:59 Order name: Cath; Complete Time: 22:15 sp4 04/03 21:59 Order name: EKG - Nurse/Tech; Complete Time: 23:08 4 04/03 21:59 Order name: IV Saline Lock - Large Bore; Complete Time: 23:08 4 04/03 21:59 Order name: Labs collected and sent; Complete Time: 23:08 4 04/03 21:59 Order name: O2 Per Protocol; Complete Time: 23:08 4 04/03 21:59 Order name: O2 Sat Monitoring; Complete Time: 23:08 4 04/03 21:59 Order name: Vital Signs; Complete Time: 23:08 sp4 EC:14 Rate is 101 beats/min. Rhythm is irregularly irregular, A fib with Occasional PVCs, sp4 Multifocal PVCs. QRS [place] is Normal. QRS interval is normal. QT interval is normal. No Q waves. Clinical impression: No evidence of ischemia. Interpreted by me. Reviewed by me. Administered Medications: 04/03 23:17 Not Given (Physician Discretion): mupirocinointment 2 % 1 application Topical once kd3 23:32 Drug: Rocephin - Rocephin (cefTRIAXone) IVPB 1 grams IVPB once over 30 mins; (mix in 50 kd3 mL NS) Route: IVPB; Infused Over: 30 mins; Site: right jugular; 23:32 Drug: Furosemide IVP 60 mg IVP once; give over 2 minutes Route: IVP; Site: right kd3 jugular; 23:32 Drug: Fluconazole PO 200 mg PO once Route: PO; kd3 23:32 Drug: metroNIDAZOLE IVPB 500 mg 100 ml IVPB at 200 ml/hr once over 30 mins Volume: 100 kd3 ml; Route: IVPB; Rate: 200 ml/hr; Infused Over: 30 mins; Site: right jugular; 04/04 00:45 Drug: Ondansetron IVP 4 mg IVP once; over 2 minutes Route: IVP; Site: right jugular; kd3 00:46 Drug: Potassium Chloride IV 40 mEq IV at calculated rate once; administer over 1-2 kd3 hours Route: IV; Rate: calculated rate; Site: right jugular; 00:46 Drug: Potassium Chloride PO 40 mEq PO once Route: PO; kd3 00:46 Drug: Furosemide IVP 20 mg IVP once; give over 2 minutes Route: IVP; Site: right kd3 jugular; 00:46 Drug: morphine IVP or IV 4 mg IVP once over 4 mins Route: IVP; Infused Over: 4 mins; kd3 Site: right jugular; Disposition Summary: 04/04/24 00:23 Hospitalization Ordered Notes: Hospitalization Status: Inpatient Admission sp4 Provider: Hernan Thomas sp4 Location: Telemetry/MedSurg (Inpatient) sp4 Condition: Fair sp4 Problem: new sp4 Symptoms: have improved sp4 Bed/Room Type: Standard sp4 Room Assignment: 231(04/04/24 01:11) Diagnosis - Hypokalemia sp4 - 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 EDMS EDMS :58 21:58 Troponin High Sensitivity+C.LAB.BRZ ordered. EDMS EDMS 21:59 21:59 BLOOD CULTURE*+BA.LAB.BRZ ordered. EDMS EDMS 21:59 21:59 CBC+H.LAB.BRZ ordered. EDMS EDMS 21:59 21:59 COMPREHENSIVE METABOLIC PANEL+C.LAB.BRZ ordered. EDMS EDMS 21:59 21:59 LACTATE+C.LAB.BRZ ordered. EDMS EDMS 21:59 21:59 PROTIME (+INR)+COAG.LAB.BRZ ordered. EDMS EDMS 21:59 21:59 PTT, ACTIVATED+COAG.LAB.BRZ ordered. EDMS EDMS 21:59 21:59 Urinalysis+U.LAB.BRZ ordered. EDMS EDMS 21:59 21:59 Chest Single View+RAD.RAD.BRZ ordered. EDMS EDMS 21:59 21:59 CREATINE PHOSPHOKINASE+C.LAB.BRZ ordered. EDMS EDMS 21:59 21:59 C-REACTIVE PROTEIN+C.LAB.BRZ ordered. EDMS EDMS 04/04 01:11 00:23 sp4 cg
[2024-04-04] MEDS ORDERED: FUROSEMIDE 20 MG/ 2ML VIAL ONE (00:25)
[2024-04-04] MEDS ORDERED: POTASSIUM CL SA 10 MEQ TAB PO ONE (00:25)
[2024-04-04] MEDS ORDERED: KCL 20 MEQ/100 mL IVPB 200 ML IV ONE (00:26)
--- NOTE | 2024-04-04 00:26 | P.HP ---
Certification for Inpatient With expected LOS: >2 Midnights Patient will require the following post-hospital care: None Practitioner: I am a practitioner with admitting privileges, knowledge of patient current condition, hospital course, and medical plan of care. Services: Services provided to patient in accordance with Admission requirements found in Title 42 Section 412.3 of the Code of Federal Regulations Patient History Date of Service: 04/04/24 Reason for admission: Shortness of breath History of Present Illness: 48-year-old male with history of morbid obesity, hypertension, DM, severe systolic CHF-patient also of breath spouse report might be around 30 to 40%, , previously follows with cardiology at [facility] but currently only follows with PCP in [place] , PVD status post left BKA and right AKA, on chronic diuretics with metolazone and Bumex who presented because of worsening body swelling, worsening shortness of breath even at rest. Patient activated EMS. EMS required assist in getting patient to the emergency room due to patient size. Patient admits to being adherent with his diuretics. He states he take Bumex 4 mg in a.m. and 2 mg in the afternoon and also in the evening. He also took metolazone daily. He states he has not been making urine as more since the last few days which she feels is due to his Flomax use also. He has self discontinue d the Flomax but his body swelling continued. He denies any high salt or increased free water intake. He is very worried about his significant scrotal swelling On arrival in the ED, he was noted with low O2 sat in the upper 80s requiring supplemental 2 L oxygen to achieve 95%. Chest x-ray shows marked cardiomegaly with bilateral haziness consistent with pulmonary edema. Laboratory workup shows normal troponin with CPK of 448, proBNP was 928, CBC was unremarkable except for hemoglobin of 9.2, CRP elevated, lactic acid normal at 0.9, BMP shows severe hypokalemia 2.6 with creatinine of 1.8previous was 1.77 about 1-month ago. Patient has been admitted for acute CHF exacerbation Home medications list reviewed: No - Past Medical/Surgical History Has patient received pneumonia vaccine in the past: No -: DM -: Hypertension -: Systolic CHF -: PVD -: Bilateral BKA - Social History Smoking Status: Former smoker Smoking therapy provided: No Patient receptive to therapy: No Alcohol use: No CD- Drugs: No Caffeine use: No Place of Residence: Home Review of Systems General: Weakness Respiratory: Cough, Shortness of Breath, SOB with Excertion Integumentary: Rash, Lesions Physical Examination - Physical Exam General: Alert, In no apparent distress, Oriented x3, Cooperative, Obese (Morbidly) HEENT: Atraumatic, Normocephalic, PERRLA Neck: 2+ carotid pulse no bruit, JVD not distended Respiratory: Diminished, Crackles/rales Cardiovascular: Normal pulses, Regular rate/rhythm, Normal S1 S2 Gastrointestinal: Normal bowel sounds, Soft and benign, Non-distended, No ascites, No tenderness Musculoskeletal: Clubbing, Swelling, Other (BKA with significant stump edema) Integumentary: Rash(es) (Multiple with erythema of abdominal wall and multiple lesions on extremities) Neurological: Normal speech, Normal strength at 5/5 x4 extr, Sensation intact, Cranial nerves 3-12 intact Urinary: Antonio catheter, Other (Marked scrotal edema) External genitalia: Edema - Studies Laboratory Data (last 24 hrs) 04/03/24 04/03/24 04/03/24 22:48 22:48 22:48 WBC 5.10 Hgb 9.2 L Hct 29.0 L Plt Count 152 PT 13.9 H INR 1.25 APTT 34.1 Sodium 141 Potassium 2.6 L* BUN 58 H Creatinine 1.85 H Glucose 121 H Total Bilirubin 0.6 AST 45 H ALT 19 Alkaline Phosphatase 60 Assessment and Plan - Problems (Diagnosis) (1) Acute systolic (congestive) heart failure Current Visit: Yes Status: Acute (2) Diabetes mellitus Current Visit: Yes Status: Acute (3) Hypertension Current Visit: Yes Status: Acute (4) PVD (peripheral vascular disease) Current Visit: Yes Status: Acute (5) Hx of BKA Current Visit: Yes Status: Acute (6) Hypokalemia Current Visit: Yes Status: Acute - Plan Impression Acute CHF exacerbation Hypokalemia CKD stage III Hypertension DM PVD Skin lesionslikely fungal dermatitis Plan Acute systolic CHF exacerbationstatus post failure of response to Bumex and metolazone Switch to Bumex drip Replace potassium Monitor vital signs, if trending hypotension may need milrinone drip Echocardiogram in a.m. Monitor intake and output Fluid restriction to less than 1.2 L/day Hypokalemiareplete with 40 mEq Q 4 x 3 today Follow magnesium level Consider daily checks of BMP CKD stage IIIstable, follow creatinine trend with diuresis Obtain urine studies for proteinuria Might need albumin diuresis Add nephrology consult in a.m. Diabetes mellitus type 2 Scale with Accu-Cheks Skin lesions likely fungal, wwill do Mycolog powder as needed Obtain blood culture to rule out sepsis although no leukocytosis noted Recent UTIcomplete Cipro dosage, resume 250 twice daily DVT prophylaxissubcutaneous Lovenox Full code Disposition possible hospital stay for more than 48 hours Total time spent in evaluation greater than 60 minutes - Advance Directives Does patient have a Living Will: No Does patient have a Durable POA for Healthcare: No
[2024-04-04] MEDS ORDERED: ONDANSETRON 4 MG/2 ML VIAL IV PRN (00:33)
[2024-04-04] MEDS ORDERED: ALBUTEROL 2.5 MG/3 ML NEB SOL NEB PRN (00:33)
[2024-04-04] MEDS ORDERED: HYDRALAZINE HCL 20 MG/ML VIAL IV PRN (00:36)
[2024-04-04] MEDS ORDERED: ONDANSETRON 4 MG/2 ML VIAL ONE (00:36)
[2024-04-04] MEDS ORDERED: MELATONIN 5 MG TABLET PO PRN (00:36)
[2024-04-04] MEDS ORDERED: MORPHINE 4 MG/ML SYR ONE (00:36)
[2024-04-04] MEDS: POTASSIUM CL 40 MEQ in NA CHLORIDE 0.9% 500 ML IV SCH (01:00)
[2024-04-04] MEDS: POTASSIUM 25 MEQ EFFERV TAB PO ONE (02:13)
[2024-04-04] MEDS: KCL 20 MEQ/100 mL IVPB 100 ML IV SCH (03:00)
[2024-04-04] MEDS: INSULIN REGULAR (HUMAN) 100 UNIT/ML SQ SCH (06:00)
[2024-04-04 07:06] LABS: UR PROTEIN 6.6 mg/dL (<11.9); Urine Protein/Creatinine Ratio 0.15 ratio (<0.15)
[2024-04-04 08:02] LABS: Albumin 1.8 g/dL (3.4-5.0); Albumin/Globulin Ratio 0.4 (1.1-1.8); Anion Gap 4.7 mEq/L (5.0-15.0); Bilirubin Total 0.6 mg/dL (0.2-1.0); Globulin 4.7 g/dL (2.3-3.5); Potassium 2.7 mEq/L (3.5-5.1); Protein, Total 6.5 g/dL (6.4-8.2)
[2024-04-04] MEDS: ENOXAPARIN 40 MG/0.4 ML SQ SCH (09:00)
[2024-04-04] MEDS: CEFEPIME 1 GM in NA CHLORIDE 0.9% 100 ML IV SCH (09:00)
[2024-04-04] MEDS: NYSTATIN PWDR 100000 UNIT/GM TOP SCH (09:00)
[2024-04-04] MEDS: POTASSIUM CL SA 10 MEQ TAB PO SCH (09:08)
[2024-04-04] MEDS: ACETAMINOPHEN 500 MG TAB PO PRN (09:09)
[2024-04-04] MEDS: KCL 20 MEQ/100 mL IVPB 20 MEQ/100 ML BAG IV SCH (09:43)
[2024-04-04] MEDS: METOPROLOL TAR 25 MG TAB PO SCH (11:48)
[2024-04-04] MEDS: PREGABALIN 75 MG CAP PO SCH (12:59)
[2024-04-04] MEDS: FUROSEMIDE 100 MG in NA CHLORIDE 0.9% 90 ML IV SCH (13:10)
--- NOTE | 2024-04-04 13:46 | P.CNS ---
Date of Consult: 04/04/24 Chief Complaint: Shortness of breath History of Present Illness: Patient is morbidly obese, with PMH of Heart failure (EF ranging 30-50% per ), PVD s/p amputation, has been having reduced urine output for the past few days, he says his testicles were so swollen that it is was obstructing his urine stream, his PCP increased his Bumex dose to 4/2/2, he used to be on Bumex 2 TID, he used to follow up in [place], last echo was done in [facility] and was told by cardiolgist that it is not his heart that causing the problem. Allergies amoxicillin Allergy (Verified 04/04/24 05:26) Hives/Rash Penicillins Allergy (Verified 04/04/24 05:26) Anaphylaxis Home medications list reviewed: Yes Home Medications: Acetaminophen [Tylenol] 650 mg PO TID PRN 04/04/24 Bumetanide [Bumex] 2 mg PO BID 04/04/24 Ciprofloxacin HCl [Cipro 250 MG Tablet*] 250 mg PO BID 04/04/24 Insulin Degludec [Tresiba] 80 unit SQ DAILY PRN 04/04/24 Metoprolol Tartrate [Lopressor*] 25 mg PO DAILY 04/04/24 Pregabalin [Lyrica*] 75 mg PO TID 04/04/24 metOLazone [Metolazone] 5 mg PO DAILY 04/04/24 - Past Medical/Surgical History Diabetic: Yes -: DM -: Hypertension -: Systolic CHF -: PVD -: a. fib -: Bilateral BKA -: eye sx - Social History Smoking Status: Unknown if ever smoked Alcohol use: No CD- Drugs: Yes Caffeine use: Yes Place of Residence: Home Review of Systems 10-point ROS is otherwise unremarkable Physical Examination Temp Pulse Resp BP Pulse Ox 97.6 F 97 H 18 109/60 94 04/04/24 08:00 04/04/24 11:48 04/04/24 08:00 04/04/24 08:00 04/04/24 08:00 General: Alert, In no apparent distress HEENT: Atraumatic, PERRLA, Mucous membr. moist/pink, EOMI, Sclerae nonicteric Neck: Supple, 2+ carotid pulse no bruit, No LAD, Without JVD or thyroid abnormality Respiratory: Diminished, Dull, Crackles/rales Cardiovascular: Regular rate/rhythm, Normal S1 S2 Gastrointestinal: Normal bowel sounds, No tenderness Musculoskeletal: No tenderness Integumentary: No rashes Neurological: Normal gait, Normal speech, Normal tone, Normal affect Lymphatics: No axilla or inguinal lymphadenopathy External genitalia: Edema (swelling testicle) Laboratory Data (last 24 hrs) 04/03/24 04/03/24 04/03/24 22:48 22:48 22:48 WBC 5.10 Hgb 9.2 L Hct 29.0 L Plt Count 152 PT 13.9 H INR 1.25 APTT 34.1 Sodium 141 Potassium 2.6 L* BUN 58 H Creatinine 1.85 H Glucose 121 H Total Bilirubin 0.6 AST 45 H ALT 19 Alkaline Phosphatase 60 - Problems (1) Acute combined systolic and diastolic heart failure Current Visit: Yes Status: Acute Plan: Patient is morbidly obese and it is very hard to assess his volume status, noticed significant testicular swelling which can be a sign of fluid retention. (patient used to be on Bumex 2 mg po TID at home) Lasix drip at 15 mg/hr Monitor and document input and output closely Monitor and correct electrolytes (K>4 and Mg>2) Please get echo and also try to get most recent Echo report from [facility] (done around 2 months ago) (2) Hypertension Current Visit: Yes Status: Acute Plan: BP is borderline, continue Metoprolol 25 mg po BID and diuresis and monitor (3) PVD (peripheral vascular disease) Current Visit: Yes Status: Acute Plan: ASA 81 g daily Lipitor 40 mg daily (4) Atrial fibrillation Current Visit: Yes Status: Acute Plan: Currently rate controlled Continue Metoprolol 25 mg po BID Patient agrees with anticoagulation Start Eliquis 5 mg po BID.
[2024-04-04] MEDS: ALBUMIN HUM 5% 500 ML IV SCH (14:30)
--- NOTE | 2024-04-04 17:11 | P.PN ---
Date of Service: 04/04/24 Patient seen on rounds this morning reports no significant change yet States for the first 2 weeks he was taking Flomax as prescribed during his recent hospitalization 1 month ago. He now reports that this caused some urinary retention which then led to lower extremity/lower abdominal edema He otherwise denies any other new oral medications He reports significant scrotal swelling / progressively worsening over the last several days lasix drip not started this morning for unknown reason cardiology & nephrology consulted patient hosptialized for ~2 weeks at [facility] in mid February for similar presentation. Patient states he had an infection but they couldn't find out where it was from at that time. continue diuresis, monitor renal fxn / BP continue dumont
[2024-04-04] MEDS: Magnesium Sulfate 2gm IVPB 2 G/50 ML BAG IV ONE (18:32)
[2024-04-04] MEDS: MIDODRINE HCL 5 MG TABLET PO SCH (19:39)
[2024-04-04 19:55] LABS: Anion Gap 3.8 mEq/L (5.0-15.0); Potassium 2.8 mEq/L (3.5-5.1)
[2024-04-04] MEDS: SPIRONOLACTONE 25 MG TABLET PO SCH (20:38)
[2024-04-04] MEDS: ALBUMIN HUMAN 25% 50 ML IV ONE (20:48)
--- NOTE | 2024-04-04 21:06 | CON ---
Date of Consultation: 04/04/2024 Chief Complaint: Cardiorenal syndrome, severe dyspnea, anasarca. History Of Present Illness: The patient is morbidly obese with past medical history of heart failure , ejection fraction ranging from 30% to 50%. He has peripheral vascular disease, underwent amputatio n in the past. He remains bedbound. He has severe anasarca, leg swelling, and scrotal swelling. It was obstructing his urinary stream. His PCP increased his Bumex dose to 4 mg, 2 mg, and 2 mg to tot al daily dose of 8 mg. Previously, he was on Bumex 2 mg 3 times per day. Usually the patient has fo llowup at [facility]. Last echo of the heart was done in [facility]. He was told by his ship's officer that he does not have significant systolic dysfunction, although prior to this admissio n he noted he had diminished urinary stream as well as progressively worse edema and shortness of gregor ath. He presented to the hospital and admitted to the hospital, he was started on Lasix and was foun d to have hypokalemia and received supplementation. Recent workup revealed hypomagnesemia, and the p atcesar is on magnesium and potassium supplementation. Past Medical History: Diabetes mellitus; chronic kidney disease; hypertension; systolic congestive h eart failure, acute on chronic; peripheral vascular disease; bilateral BKAs; atrial fibrillation; eye surgery. Social History: Denies alcohol. No tobacco. No drugs. Review of Systems: Constitutional: Denies fever, chills. Eyes: Denies vision changes. Ears, Nose, Mouth, and Throat: Denies sore throat, earache. Respiratory: Has severe dyspnea at rest, PND, orthopnea. GI: Denies nausea, vomiting. : Denies hematuria, although he had diminished urinary stream. Previously, he was taking Flomax. Extremities: Swelling progressively worse. Physical Examination: General: The patient is alert, not in apparent distress. HEENT: Atraumatic, normocephalic. EOMI. Neck: Supple. No JVD. Respiratory: Diminished. Crackles and rales present. Cardiovascular: S1 and S2. Gastrointestinal: Normal bowel sounds. No tenderness. Neurological: Normal gait. Normal speech. Normal tone. Genitourinary: External genitalia edema, swelling of the scrotum. Laboratory Work: Sodium 141, potassium 2.6, BUN 58, creatinine 1.85, glucose 121, total bilirubin 0. 6, AST 45, ALT 19, AP 60. Impression And Plan: 1.Acute combined systolic and diastolic congestive heart failure. The patient is morbidly obese. L altonely, he needs to have workup for pulmonary hypertension. He has anasarca and developed urinary ret ention, and will continue Antonio catheter for now. Plan is to check renal ultrasound. Continue diure tic. The patient may need Lasix or Bumex drip, likely combined with albumin drip. Cardiology consul tation is requested for further workup of congestive heart failure and systolic dysfunction. 2.Hypertension. Blood pressure is borderline. The patient is on metoprolol for congestive heart fa ilure. Monitor blood pressure closely. 3.Anasarca. Plan is to check proteinuria to rule out nephrotic syndrome and check for an evidence f or diabetic kidney disease. The patient may need renal biopsy when volemia is controlled. 4.Atrial fibrillation. Continue metoprolol. The patient is on anticoagulation. SHADE/SIMON Voice ID: [id number] Report ID: [id number]
[2024-04-04] MEDS: POTASSIUM CL SA 10 MEQ TAB PO ONE (21:11)
[2024-04-04] MEDS: MORPHINE 2 MG/ML SYR IV PRN (22:12)
[2024-04-05 01:11] LABS: Anion Gap 5.7 mEq/L (5.0-15.0); Potassium 2.7 mEq/L (3.5-5.1)
[2024-04-05] MEDS: NA CHLORIDE 0.9% 100 ML ONE (02:33)
[2024-04-05] MEDS: KCL 20 MEQ/100 mL IVPB 20 MEQ/100 ML BAG IV SCH (02:33)
[2024-04-05 06:01] LABS: Absolute Basophils 0.1 K/uL (0-0.5); Absolute Eosinophils 0.3 K/uL (0-0.5); Absolute Lymphocytes (CBC) 0.7 K/uL (0.7-4.9); Absolute Monocytes 0.6 K/uL (0.1-1.3); Absolute Neutrophil 3.2 K/uL (1.8-8.0); Basophils % 1.3 % (0-1.3); Eosinophils % 7.1 % (0-4.4); Hematocrit 26.1 % (39.6-49.0); Hemoglobin 8.3 g/dL (13.6-17.9); Lymphocytes % 13.5 % (15.3-44.8); MCH 26.5 pg (27.0-35.0); MCHC 31.9 g/dL (32.0-36.0); MCV 82.9 fL (80-100); Monocytes % 12.5 % (3.3-12.3); Neutrophils % 65.6 % (41.7-73.7); Nucleated Red Blood Cells % 0.1 % (0-0); Platelets 137 thou/uL (152-406); RBC Red Blood Cell Count 3.15 M/uL (4.33-5.43); Red Cell Distribution Width 18.2 % (12.1-15.2)
[2024-04-05 06:23] LABS: Albumin/Globulin Ratio 0.5 (1.1-1.8); Anion Gap 4.9 mEq/L (5.0-15.0); Bilirubin Total 0.8 mg/dL (0.2-1.0); Globulin 4.4 g/dL (2.3-3.5); Potassium 2.9 mEq/L (3.5-5.1); Protein, Total 6.4 g/dL (6.4-8.2); Troponin High Sensitivity 20.8 pg/mL (<58.9)
--- NOTE | 2024-04-05 07:53 | P.PN ---
Date of Service: 04/05/24 Subjective: reports catheter came out yesterday, possibly when switching beds per patient minimal discomfort reported at the time. tolerating male purewick breathing more comfortably on room air afebrile ROS: 10 point ROS as noted above, otherwise negative Physical Exam: GEN: Alert, oriented, NAD, morbidly obese HEENT: Normal conjunctiva, sclera anicteric CV: irregularly irregular rhythm, 3+ edema to abdomen Pulm: Nonlabored respirations on room air, diminished at bases b/l, crackles/rales ABD: Soft, nontender, nondistended vitals reviewed Problem List: acute on chronic combined systolic/diastolic CHF exacerbation Hx PVD, s/p Left BKA and Right AKA chronic a-fib. ?hx urinary retention concern for fungal dermatitis CKD2-3 Recent Bacteriuria Hx Liver Cirrhosis IDDM2 with neuropathy, retinopathy Hypertension Obstructive sleep apnea / COPD acute on chronic combined systolic/diastolic CHF exacerbation Hx PVD, s/p Left BKA and Right AKA reports significant scrotal swelling / progressively worsening over the last several days. Patient had tele visit with PCP on 03/31, Was advised to increase bumex to 2 tabs in morning (4mg), then 1 tab in afternoon/evening (2mg) patient hospitalized at [facility] in mid February (02/08-02/18). Was in ICU for a-fib RVR, hypoxia, fever, volume overload. Treated with bumex drip (02/11-02/16), dobumtaine gtt (02/11-02/15 am). On discharge, had Bumex increased to 2mg TID, new flomax 0.4 mg daily. States for the first 2 weeks he was taking Flomax as prescribed during his recent hospitalization 1 month ago. He now reports that this caused some urinary retention which then led to lower extremity/lower abdominal edema per [facility] rubber chemist, patient was advised to adhere to 1.5L fluid restriction, 2gm Na diet. Recent TTE (02/11/24): LV appears low normal, but apex foreshortened. RV significantly enlarged with decreased systolic function. RA size moderately dilated. Est peak systolic PA pressure 20-25mmHG + RA pressure. mild TR/MR Technically limited exam secondary to body habitus. prior echo in 11/2023 noted 55-60% EF, mod-severe TR, mild pulm HTN cardiology & nephrology consulted continue diuresis with lasix drip, spironolactone, Monitor renal fxn / BP continue metolazone strict i/o's PRN nebs chronic a-fib has history of chronic a-fib. Previously on eliquis reportedly stopped eliquis on his own accord a few months ago after he developed "profuse bleeding" per patient. discussed risks/benefits of starting anticoagulation. continue home metoprolol ?hx urinary retention per outside recs: had dumont placed initially for strict I/Os at [facility] during his last hospitalization. Was started on flomax 0.4 mg 02/16 after dumont was removed. unable to find if/what PVR were at the time. continue purewick for now; Dumont accidentally removed yesterday when changing patients beds. concern for fungal dermatitis continue nystatin topical CKD2-3 creatinine ranges from 1.7-2 since November continue to monitor renal function Nephro consulted likely ~baseline Recent Bacteriuria During his hospitalization at [facility] in mid February (02/08-02/18) urine culture had grown Staph empidermidis ID was consulted. Sepsis was ruled out. Patient completed 5 days of linezolid for possible UTI. Blood cultures were without growth at the time. no evidence of active infxn. afebrile. No luekocytosis. Hx Liver Cirrhosis outside CT from 2022 noted cirrhotic morphology of liver IDDM2 with neuropathy, retinopathy accu-cheks, SSI confirm home meds Hypertension confirm home meds, restart as appropriate Obstructive sleep apnea / COPD unable to tolerable CPAP in past confirm home meds, restart as appropriate VTE: lovenox Code: Full Dispo: Home, ~2-3 days Pending further diuresis, cardiac recs Time Spent Managing Pts Care (In Minutes): 41
[2024-04-05] MEDS: METOLAZONE 2.5 MG TABLET PO SCH (09:00)
--- NOTE | 2024-04-05 09:11 | RAD REPORT ---
EXAM DESCRIPTION: US - Renal Ultrasound-Complete - 04/05/2024 6:48 am CLINICAL HISTORY: yuan ckd 3 COMPARISON: No comparisons FINDINGS: Examination is extremely limited by body habitus. The right kidney could not be well visualized due to lack of a sonographic window. The left kidney measures 13.0 x 6.8 x 5.4 cm.. No hydronephrosis, focal mass or perinephric fluid. The urinary bladder is not well visualized due to body habitus. IMPRESSION: Very limited examination as detailed. Normal appearance of left kidney.
[2024-04-05] MEDS: HYDROMORPHONE HCL 1 MG/ML INJ IV PRN (10:39)
[2024-04-05] MEDS: Magnesium Sulfate 2gm IVPB 2 G/50 ML BAG IV ONE (10:39)
[2024-04-05] MEDS: NA CHLORIDE 0.9% IV SCH (12:00)
[2024-04-05] MEDS: FUROSEMIDE IV SCH (12:00)
[2024-04-05] MEDS: INSULIN REGULAR (HUMAN) 100 UNIT/ML SQ SCH (20:14)
[2024-04-05] MEDS: POTASSIUM CL SA 10 MEQ TAB PO ONE (21:22)
--- NOTE | 2024-04-05 21:48 | PN ---
Date of Progress Note: 04/05/2024 Chief Complaint: Cardiorenal syndrome, severe dyspnea, anasarca. Subjective: Patient is morbidly obese with past medical history of heart failure, ejection fraction ranging from 30% to 50%. He has peripheral vascular disease, underwent amputation in the past. He r emains bedbound. He has severe anasarca, swelling, and scrotal swelling which was obstructing his ur inary stream. He was on Bumex and his PCP increased Bumex dose from 2 mg to 4 mg daily to total mya y days of 8 mg. Previously, he was also taking Bumex 2 mg 3 times per day. Usually, the patient has followup at [facility] for heart failure. He has significant systolic dysfunction. He pres ented to the hospital because of diminished urinary stream, worsening of edema, scrotal edema, and dy spnea. A workup in the emergency room revealed elevated BUN and creatinine level, hypomagnesemia, an d hypokalemia. The patient is on magnesium and potassium supplementation. He is on drip and anasarc a has not improved significantly. Urine protein to creatinine ratio was checked to evaluate for neph rotic syndrome. Review of Systems: The patient denies new complaints. He is bedbound. He denies dyspnea, chest pain, palpitation. Objective: Lungs: Diminished breath sounds at bases. Crackles bilaterally present. Cardiovascular: S1, S2. Abdomen: Obese, soft. Extremities: Anasarca. Impression And Plan: 1.Acute combined systolic and diastolic congestive heart failure, complicated by cardiorenal syndrom e, prerenal azotemia. BUN is 59, creatinine 1.85. The patient has acute on chronic kidney injury. Patient will continue Lasix drip and metolazone was also resumed. The patient is on potassium supple mentation. Potassium level is improving. Continue to monitor closely magnesium and supplement magne sium according to lab results. 2.Hypertension. Blood pressure is borderline. Patient is on metoprolol for congestive heart failur e. Monitor blood pressure closely and continue albumin and Lasix drip accordingly. 3.Anasarca. Proteinuria panel is ordered. The patient may need renal biopsy when volemia is contro lled and when urinary tract infection is ruled out. 4.Obstructive uropathy, bladder outlet obstruction. Continue Antonio. EB/MODL Voice ID: [id number] Report ID: [id number]
[2024-04-06] MEDS: MORPHINE 2 MG/ML SYR IV PRN (01:53)
[2024-04-06 05:08] LABS: Absolute Basophils 0.1 K/uL (0-0.5); Absolute Eosinophils 0.4 K/uL (0-0.5); Absolute Lymphocytes (CBC) 0.7 K/uL (0.7-4.9); Absolute Monocytes 0.8 K/uL (0.1-1.3); Absolute Neutrophil 3.6 K/uL (1.8-8.0); Basophils % 1.4 % (0-1.3); Eosinophils % 7.1 % (0-4.4); Hemoglobin 8.9 g/dL (13.6-17.9); Lymphocytes % 12.9 % (15.3-44.8); MCH 26.5 pg (27.0-35.0); MCHC 31.9 g/dL (32.0-36.0); MCV 83.3 fL (80-100); MPV 9.2 fL (7.6-11.3); Neutrophils % 64.6 % (41.7-73.7); Nucleated Red Blood Cells % 0.1 % (0-0); Platelets 152 thou/uL (152-406); RBC Red Blood Cell Count 3.36 M/uL (4.33-5.43); Red Cell Distribution Width 18.4 % (12.1-15.2)
[2024-04-06 05:31] LABS: Albumin 1.9 g/dL (3.4-5.0); Albumin/Globulin Ratio 0.4 (1.1-1.8); Anion Gap 3.4 mEq/L (5.0-15.0); Bilirubin Total 0.6 mg/dL (0.2-1.0); Globulin 4.4 g/dL (2.3-3.5); Magnesium 1.8 mg/dL (1.6-2.4); Potassium 3.4 mEq/L (3.5-5.1); Protein, Total 6.3 g/dL (6.4-8.2)
[2024-04-06] MEDS: POTASSIUM CL SA 10 MEQ TAB PO ONE (06:38)
[2024-04-06] MEDS: MAGNESIUM SULFATE 1 gm IVPB 1 GM/100 ML BAG IV ONE (06:38)
[2024-04-06] MEDS: FAMOTIDINE 20 MG TAB PO SCH (09:18)
[2024-04-06] MEDS: FUROSEMIDE 100 MG in NA CHLORIDE 0.9% 90 ML IV SCH ×2 (09:21→15:59)
--- NOTE | 2024-04-06 11:10 | RAD REPORT ---
EXAM DESCRIPTION: RAD - Chest Single View - 04/03/2024 11:05 pm CLINICAL HISTORY: CHEST PAIN COMPARISON: None. FINDINGS: 1 view(s) of the chest. Tubes and lines: Leads overlie the chest. Right IJ central venous catheter tip in the SVC. Cardiomediastinal silhouette: Atherosclerotic calcification of thoracic aorta. Cardiomegaly. Lungs: Pulmonary vascular congestion. Bilateral interstitial opacities. Low lung volumes. No pneumoth orax. No definite effusion. Bones: No acute osseous abnormality. Degenerative change of the spine and shoulders. Upper abdomen: No abnormality identified. IMPRESSION: Cardiomegaly with pulmonary edema pattern. Electronically signed by: fEe Montilla DO 04/03/2024 11:18 PM CDT RP [id number] Due to temporary technical issues with the PACS/Fluency reporting system, reports are being signed by the in house radiologist without review as a courtesy to ensure prompt reporting. The interpreting r adiologist is fully responsible for the content of the report.
--- NOTE | 2024-04-06 11:26 | P.PN ---
Date of Service: 04/06/24 Subjective: Slight improvement compared to the day prior Feels swelling slightly improved, nothing worsening Feels like swelling of his scrotum has not improved yet ROS: 10 point ROS as noted above, otherwise negative Physical Exam: GEN: Alert, oriented, NAD, morbidly obese CV: irregularly irregular rhythm, 3+ edema to abdomen Pulm: Nonlabored respirations on room air, diminished at bases b/l, crackles/rales ABD: Soft, nontender, nondistended vitals reviewed Problem List: acute on chronic combined systolic/diastolic CHF exacerbation Hx PVD, s/p Left BKA and Right AKA chronic a-fib. ?hx urinary retention concern for fungal dermatitis ERICA on CKD2-3 Recent Bacteriuria Hx Liver Cirrhosis IDDM2 with neuropathy, retinopathy Hypertension Obstructive sleep apnea / COPD acute on chronic combined systolic/diastolic CHF exacerbation Hx PVD, s/p Left BKA and Right AKA reports significant scrotal swelling / progressively worsening over the last several days. Patient had tele visit with PCP on 03/31, Was advised to increase bumex to 2 tabs in morning (4mg), then 1 tab in afternoon/evening (2mg) patient hospitalized at [facility] in mid February (02/08-02/18). Was in ICU for a-fib RVR, hypoxia, fever, volume overload. Treated with bumex drip (02/11-02/16), dobumtaine gtt (02/11-02/15 am). On discharge, had Bumex increased to 2mg TID, new flomax 0.4 mg daily. States for the first 2 weeks he was taking Flomax as prescribed during his recent hospitalization 1 month ago. He now reports that this caused some urinary retention which then led to lower extremity/lower abdominal edema per [facility] alteration worker, patient was advised to adhere to 1.5L fluid restriction, 2gm Na diet. Recent TTE (02/11/24): LV appears low normal, but apex foreshortened. RV significantly enlarged with decreased systolic function. RA size moderately dilated. Est peak systolic PA pressure 20-25mmHG + RA pressure. mild TR/MR Technically limited exam secondary to body habitus. prior echo in 11/2023 noted 55-60% EF, mod-severe TR, mild pulm HTN cardiology & nephrology consulted continue diuresis with lasix drip, spironolactone, Monitor renal fxn / BP continue metolazone strict i/o's PRN nebs chronic a-fib has history of chronic a-fib. Previously on eliquis reportedly stopped eliquis on his own accord a few months ago after he developed "profuse bleeding" per patient. discussed risks/benefits of starting anticoagulation. continue home metoprolol ?hx urinary retention per outside recs: had dumont placed initially for strict I/Os at [facility] during his last hospitalization. Was started on flomax 0.4 mg 02/16 after dumont was removed. unable to find if/what PVR were at the time. continue purewick for now; Dumont accidentally removed 04/04 when changing patients beds. concern for fungal dermatitis continue nystatin topical ERICA on CKD2-3 creatinine ranges from 1.7-2 since November continue to monitor renal function continue lasix drip as renal fxn / BP allows Nephro consulted Recent Bacteriuria During his hospitalization at [facility] in mid February (02/08-02/18) urine culture had grown Staph empidermidis ID was consulted. Sepsis was ruled out. Patient completed 5 days of linezolid for possible UTI. Blood cultures were without growth at the time. no evidence of active infxn. afebrile. No luekocytosis. Hx Liver Cirrhosis outside CT from 2022 noted cirrhotic morphology of liver IDDM2 with neuropathy, retinopathy accu-cheks, SSI confirm home meds Hypertension confirm home meds, restart as appropriate Obstructive sleep apnea / COPD unable to tolerable CPAP in past confirm home meds, restart as appropriate VTE: lovenox Code: Full Dispo: Home, ~2-3 days Pending further diuresis, cardiac recs Time Spent Managing Pts Care (In Minutes): 41
[2024-04-06] MEDS ORDERED: HYDROCODONE/APAP 5/325 MG TAB PO PRN (17:52)
--- NOTE | 2024-04-06 20:41 | PN ---
Date of Progress Note: 04/06/2024 Subjective: Seen at bedside. He is short of breath, but with improvement. Still in atrial fibrilla tion. Review of Systems: Positive shortness of breath. No chest pain. No nausea, vomiting, diarrhea. No abdominal pain. No dysuria, polyuria, or urgency. All other systems reviewed are negative. Physical Examination: Vital Signs: Reviewed. Head and Neck: Pupils are equal, reactive to light. Intact eye movements. No cervical lymphadenopa thy. Neck is supple. Thyroid is not enlarged. Lungs: Decreased breathing sounds bilaterally. No accessory muscle use or muscle retraction. Heart: Irregularly irregular. No extra sounds. Abdomen: Soft, nontender. Bowel sounds positive. No organomegaly. No masses or hernia. No rigidi ty or rebound. Extremities: No clubbing or cyanosis. He has limitation bilaterally. Neurologic: Alert, awake, oriented x3. No acute distress. Investigations: BUN 64, creatinine is 2.18. Hemoglobin is 8.9. Assessment/recommendation: 1.Atrial fibrillation. This patient will benefit from conversion to sinus rhythm, specially with co ngestive heart failure and low ejection fraction that he has. Recommend to attempt BELKIS cardioversion to be done and also start him on Eliquis 2.5 mg twice a day. 2.Congestive heart failure with low ejection fraction. He will benefit from restoring sinus rhythm. In this patient if BELKIS cardioversion and rhythm controlling medicine like amiodarone does not work, then recommend atrial fibrillation ablation to improve his heart failure symptoms, restoring sinus r hythm can be very helpful. 3.Peripheral vascular disease. Continue current management. 4.Dyslipidemia. Continue statin. SR/MODL Voice ID: [id number] Report ID: [id number]
[2024-04-06] MEDS: POTASSIUM 25 MEQ EFFERV TAB PO ONE (22:06)
--- NOTE | 2024-04-07 00:57 | PN ---
Date of Progress Note: 04/06/2024 Chief Complaint: Cardiorenal syndrome, severe dyspnea, anasarca. History Of Present Illness: The patient is morbidly obese with past medical history of congestive he art failure, systolic dysfunction, ejection fraction ranging from 30% to 50%, severe peripheral vascu lar disease, underwent amputation in the past. The patient remains bed bound. He has severe anasarc a, scrotal edema, and has a Antonio catheter. He is on Lasix drip. His potassium level is improving. He is on treatment for hypokalemia and hypomagnesemia. Review of Systems: Denies chest pain, palpitations. Physical Examination: Lungs: Equal chest expansion. No crackles. Heart: S1, S2. Abdomen: Soft. Extremities: Anasarca. Impression And Plan: 1.Acute combined systolic and diastolic congestive heart failure, complicated by cardiorenal syndrom e, prerenal azotemia. There is high BUN/creatinine ratio. The patient is tolerating Lasix drip. Co ntinue metolazone and spironolactone. Potassium level is improving. Monitor electrolytes. Monitor magnesium and plan supplementation according to lab results. 2.Hypertension. The patient is on metoprolol for congestive heart failure. Dose was reduced due to borderline hypotension. 3.Anasarca. Proteinuria panel is ordered and pending workup for MGUS. 4.Obstructive uropathy, bladder-outlet obstruction. Continue Antonio catheter. The patient will requ jose Urology consultation. SHADE/OFEL Voice ID: [id number] Report ID: [id number]
[2024-04-07 05:49] LABS: Absolute Basophils 0.1 K/uL (0-0.5); Absolute Eosinophils 0.5 K/uL (0-0.5); Absolute Lymphocytes (CBC) 0.7 K/uL (0.7-4.9); Absolute Monocytes 0.7 K/uL (0.1-1.3); Absolute Neutrophil 3.2 K/uL (1.8-8.0); Basophils % 1.3 % (0-1.3); Eosinophils % 9.5 % (0-4.4); Hematocrit 27.3 % (39.6-49.0); Hemoglobin 8.8 g/dL (13.6-17.9); Lymphocytes % 12.9 % (15.3-44.8); MCH 26.5 pg (27.0-35.0); MCV 82.8 fL (80-100); MPV 8.6 fL (7.6-11.3); Monocytes % 13.5 % (3.3-12.3); Neutrophils % 62.8 % (41.7-73.7); Nucleated Red Blood Cells % 0.1 % (0-0); Platelets 165 thou/uL (152-406); Red Cell Distribution Width 18.3 % (12.1-15.2)
[2024-04-07 06:05] LABS: Albumin 1.9 g/dL (3.4-5.0); Anion Gap 4.5 mEq/L (5.0-15.0); Phosphorus 3.4 mg/dL (2.5-4.9); Potassium 3.5 mEq/L (3.5-5.1)
--- NOTE | 2024-04-07 11:33 | PN ---
Date of Progress Note: 04/07/2024 Subjective: The patient was admitted to the hospital with anasarca, congestive heart failure with ex acerbation. Patient being on Lasix drip, diuresing very well. Objective: Vital Signs: Blood pressure 129/61, pulse of 90, afebrile. The patient had good urine output of 5200, negative of 3500. General: The patient still has shortness of breath. Chest: Decreased entry, bilateral base. Heart: S1, S2. Abdomen: Morbidly obese. Could not appreciate any organomegaly. Extremities: Bilateral amputee. No edema. Neurologic: Alert. No focality. Laboratory Data: WBC 5.1, hemoglobin 8.8, sodium 139, potassium 3.5, bicarb 37, BUN 66, creatinine 2 , trending down from yesterday. Calcium 7.9, phosphorus 3.4. Chest x-ray: Cardiomegaly with conges tion. Serum protein electrophoresis is still pending. TSH 6.7. PC ratio 0.1. Serology still pendi ng. Current Medications: The patient on, it includes nystatin, midodrine 10 mg t.i.d., Lovenox, metoprol ol 25 b.i.d., spironolactone 50 daily, Lasix drip at 20 mg daily, metolazone, Zofran, magnesium oxide . Assessment And Plan: 1.Acute kidney injury secondary to cardiorenal, normal sized kidney. The right kidney was not visua lized, still on the overvolume side. I am going to continue Lasix drip. I will go ahead and obtain repeated chest x-ray and uric acid for better evaluation of his fluid status, and we will follow up t he patient. I will send for PTH to evaluate further for the chronicity of the disease. 2.Hypertension, currently blood pressure on the lower side. I am going to continue Lasix drip. Con tinue midodrine. Try to utilize blood pressure for more diuresis. We will consider switching Lasix to push depending on the chest x-ray hopefully in the next 24 hours. 3.Respiratory failure secondary to overvolume, as above. 4.Anasarca secondary to renal failure, body habitus. Continue diuresis as above and we will follow up. ANDRE Voice ID: [id number] Report ID: [id number]
--- NOTE | 2024-04-07 11:59 | P.PN ---
Subjective Date of Service: 04/07/24 Chief Complaint: Shortness of breath Subjective: No new changes, No C/O voiced, Tolerating diet, Ambulating, Improving Review of Systems 10-point ROS is otherwise unremarkable Physical Examination - Vital Signs Temperature: 98.0 F Blood Pressure: 129/61 Pulse: 90 Respirations: 16 Pulse Ox (%): 94 - Physical Exam General: Alert, In no apparent distress HEENT: Atraumatic, PERRLA, EOMI Neck: Supple, JVD not distended Respiratory: Diminished, Crackles/rales Cardiovascular: Irregular heart rate/rhythm Gastrointestinal: Normal bowel sounds, No tenderness Musculoskeletal: No tenderness Integumentary: No rashes Neurological: Normal speech, Normal tone, Normal affect Lymphatics: No axilla or inguinal lymphadenopathy - Studies Medications List Reviewed: Yes Assessment And Plan - Current Problems (Diagnosis) (1) Acute combined systolic and diastolic heart failure Current Visit: Yes Status: Acute Plan: Patient is morbidly obese and it is very hard to assess his volume status, noticed significant testicular swelling which can be a sign of fluid retention. (patient used to be on Bumex 2 mg po TID at home) Lasix drip at 20 mg/hr Monitor and document input and output closely Monitor and correct electrolytes (K>4 and Mg>2) last Echo in [facility] on 11/2023 shows normal EF, diastolic dyfunction, moderate to severe TR with Pulmonary hypertension (2) Hypertension Current Visit: Yes Status: Acute Plan: BP is borderline, continue Midodrine and diuresis and monitor (3) PVD (peripheral vascular disease) Current Visit: Yes Status: Acute Plan: ASA 81 g daily Lipitor 40 mg daily (4) Atrial fibrillation Current Visit: Yes Status: Acute Plan: Currently rate controlled Continue Metoprolol 25 mg po BID Patient agrees with anticoagulation Start Eliquis 5 mg po BID.
--- NOTE | 2024-04-07 12:28 | RAD REPORT ---
[facility]AM DES[facility] 11:02 am CLINICAL HISTORY: COPD COMPARISON: Chest Single View dated 04/03/2024; Chest Single View dated 02/09/2024 TECHNIQUE: Portable AP view of the chest. FINDINGS: Patient rotation somewhat limits evaluation. Stable central interstitial and vascular prom inence. No new focal airspace opacities. Right IJ CVC in place with tip projecting at the level of th e distal SVC. No pneumothorax or effusion. Stable cardiomegaly. Mediastinal contours are unchanged. IMPRESSION: Right IJ CVC tip projects at the level of the distal SVC. Stable findings suggestive of mild CHF.
--- NOTE | 2024-04-07 12:48 | EKG ---
Test Date: 2024-04-03 Test Time: 22:25:02 Pet Crematory Worker: JOHN MEASUREMENT RESULTS: Intervals: Rate: 101 CA: QRSD: 104 QT: 408 QTc: 529 [place]: P: CA: QRS: 19 T: 109 INTERPRETIVE STATEMENTS: Atrial fibrillation with premature ventricular or aberrantly conducted complexes Indeterminate axis Low voltage QRS Septal infarct, age undetermined Abnormal ECG Compared to ECG 02/09/2024 20:01:00 Ventricular premature complex(es) now present Indeterminate axis now present Low QRS voltage now present Right superior axis no longer present Incomplete right bundle-branch block no longer present Right ventricular hypertrophy no longer present Prolonged QT interval no longer present Myocardial infarct finding still present Electronically Signed On 04-07-24 12:42:19 CDT by Hamilton Berrios
--- NOTE | 2024-04-07 16:36 | P.PN ---
Subjective Date of Service: 04/07/24 Chief Complaint: Shortness of breath Patient with significant urine output over the past 24 hours. He denies any orthopnea. Reports improvement in his thigh edema. Physical Examination - Vital Signs Temperature: 97.2 F Blood Pressure: 140/60 Pulse: 85 Respirations: 14 Pulse Ox (%): 94 - Studies Medications List Reviewed: Yes Assessment And Plan - Plan Physical Exam: GEN: Alert, oriented, NAD, morbidly obese CV: irregularly irregular rhythm, 3+ edema to abdomen Pulm: diminished bilaterally, clear to auscultation bilateral, no rhonchi. ABD: Soft, nontender, obese abdomen. Genitourinary: Edematous scrotum Skin: Areas of skin xerosis on suprapubic area of abdomen and bilateral thighs. vitals reviewed Problem List: acute on chronic combined systolic/diastolic CHF exacerbation Acute on chronic cor pulmonale Hx PVD, s/p Left BKA and Right AKA chronic a-fib. 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 Anasarca is improving with IV Lasix drip and metolazone Fluid restriction to 1.5 L/day reemphasized. Low-salt diet reemphasized. Nephrology and cardiology are following and assisting with management Recent TTE (02/11/24): LV appears low normal, but apex foreshortened. RV significantly enlarged with decreased systolic function. RA size moderately dilated. Est peak systolic PA pressure 20-25mmHG + RA pressure. mild TR/MR Prior echo in 11/2023 noted 55-60% EF, mod-severe TR, mild pulm HTN Continue spironolactone, Monitor renal fxn / BP strict i/o's chronic a-fib has history of chronic a-fib. Previously on eliquis reportedly stopped eliquis on his own accord a few months ago after he developed "profuse bleeding" per patient. discussed risks/benefits of starting anticoagulation. continue home metoprolol ?hx urinary retention per outside recs: had dumont placed initially for strict I/Os at [facility] during his last hospitalization. Was started on flomax 0.4 mg 02/16 after dumont was removed. unable to find if/what PVR were at the time. continue purewick for now; Dumont accidentally removed 04/04 when changing patients beds. Fungal dermatitis continue nystatin topical ERICA on CKD2-3 creatinine ranges from 1.7-2 since November continue to monitor renal function continue lasix drip as renal fxn / BP allows Nephrology is following. Intermittent albumin infusion as needed. Recent Bacteriuria During his hospitalization at [facility] in mid February (02/08-02/18) urine culture had grown Staph empidermidis ID was consulted. Sepsis was ruled out. Patient completed 5 days of linezolid for possible UTI. Blood cultures were without growth at the time. no evidence of active infxn. afebrile. No luekocytosis. Hx Liver Cirrhosis outside CT from 2022 noted cirrhotic morphology of liver Continue Lasix and spironolactone Midodrine as needed for hypotension. IDDM2 with neuropathy, retinopathy accu-cheks, SSI Blood sugar readings are within acceptable range. Hypertension Hold home antihypertensives due to borderline low BP. Obstructive sleep apnea / COPD unable to tolerable CPAP in past Bronchodilators as needed. VTE: lovenox Code: Full Dispo: Home. Time Spent Managing Pts Care (In Minutes): 38
[2024-04-08] MEDS: LEVOTHYROXINE SOD 0.025 MG TAB PO SCH (05:05)
[2024-04-08 06:01] LABS: Absolute Basophils 0.1 K/uL (0-0.5); Absolute Eosinophils 0.5 K/uL (0-0.5); Absolute Lymphocytes (CBC) 0.7 K/uL (0.7-4.9); Absolute Monocytes 0.7 K/uL (0.1-1.3); Absolute Neutrophil 2.9 K/uL (1.8-8.0); Basophils % 2.7 % (0-1.3); Eosinophils % 10.3 % (0-4.4); Hematocrit 28.3 % (39.6-49.0); Lymphocytes % 14.2 % (15.3-44.8); MCH 26.4 pg (27.0-35.0); MCHC 31.7 g/dL (32.0-36.0); MCV 83.2 fL (80-100); MPV 9.1 fL (7.6-11.3); Monocytes % 14.6 % (3.3-12.3); Neutrophils % 58.2 % (41.7-73.7); Percent Reticulocyte Count 1.59 % (0.4-2.05); Platelets 166 thou/uL (152-406); RBC Red Blood Cell Count 3.41 M/uL (4.33-5.43); Red Cell Distribution Width 18.4 % (12.1-15.2)
[2024-04-08 06:36] LABS: Anion Gap 6.6 mEq/L (5.0-15.0); Ferritin 86.2 ng/mL (26-388); Phosphorus 3.3 mg/dL (2.5-4.9); Potassium 3.6 mEq/L (3.5-5.1); Uric Acid 14.7 mg/dL (3.5-7.2)
--- NOTE | 2024-04-08 07:04 | ECHO ---
HEIGHT: 5 ft 9 in WEIGHT: 540 lb 0 oz DATE OF STUDY: 04/07/[address]: Hernan Thomas MD 2-DIMENSIONAL: YES M.MODE: YES DOPPLER: YES COLOR FLOW: YES TDS: PORTABLE: YES DEFINITY: BUBBLE STUDY: DIAGNOSIS: CEREBRAL VASCULAR ACCIDENT, RULE OUT VEGETATION CARDIAC HISTORY: CATHERIZATION: SURGERY: PROSTHETIC VALVE: PACEMAKER: MEASUREMENTS (cm) DIASTOLIC (NORMALS) SYSTOLIC (NORMALS) IVSd 1.3 (0.6-1.2) LA Diam 5.4 (1.9-4.0) LVEF 55-60% LVIDd 5.5 (3.5-5.7) LVIDs 3.7 (2.0-3.5) %FS 33% LVPWd 1.4 (0.6-1.2) Ao Diam 3.4 (2.0-3.7) 2 DIMENSIONAL ASSESSMENT: RIGHT ATRIUM: NORMAL LEFT ATRIUM: ENLARGED RIGHT VENTRICLE: NORMAL LEFT VENTRICLE: NORMAL TRICUSPID VALVE: MILD TRICUSPID REGURGITATION MITRAL VALVE: NORMAL PULMONIC VALVE: NORMAL AORTIC VALVE: NORMAL PERICARDIAL EFFUSION: NONE AORTIC ROOT: NORMAL LEFT VENTRICULAR WALL MOTION: NORMAL DOPPLER/COLOR FLOW: SEE BELOW COMMENTS: 1. NORMAL LEFT VENTRICULAR EJECTION FRACTION 55-60% WITH NORMAL WALL MOTION 2. NORMAL DIASTOLIC FUNCTION 3. MILD TRICUSPID REGURGITATION 4. NO VEGETATION IS SEEN ON THIS STUDY IF CLINICALLY INDICATED, TRANSESOPHAGEAL ECHOCARDIOGRAM CAN BE HELPFUL. TECHNOLOGIST: KAREN GONZALEZ/ ALBA HARLEY
[2024-04-08 07:42] VITALS: BMI 76.0
[2024-04-08] MEDS: POTASSIUM CL SA 10 MEQ TAB PO ONE (09:05)
[2024-04-08] MEDS: FUROSEMIDE 40 MG TABLET PO SCH (10:11)
--- NOTE | 2024-04-08 12:42 | PN ---
Date of Progress Note: 04/08/2024 Subjective: The patient was admitted to the hospital with anasarca and congestive heart failure with exacerbation. The patient known to have pulmonary hypertension. Physical Examination: Vital Signs: Blood pressure of 119/65, pulse of 85. Chest: Decreased entry at bilateral base. Heart: S1, S2. Systolic murmur. Abdomen: Soft, nontender. Extremities: Bilateral above-knee amputee. Neurologic: Alert. No focality. Laboratory Data: WBC 4.9, hemoglobin 9. Sodium 138, potassium 3.6, bicarb 35, BUN 58, creatinine do wn to 1.8, GFR of 45, uric acid 14.7, calcium 8.4, phosphorus 3.3, iron saturation 9.3, ferritin 86, albumin 2. Current Medications: The patient is on include midodrine, nystatin, spironolactone 50, Lyrica, Lasix 80 b.i.d., metolazone 2.5, Pepcid, levothyroxine. Assessment And Plan: 1.Acute kidney injury secondary to cardiorenal, over volume. I am going to continue diuresis. The patient insist for expedite his discharge. We will place the patient on Lasix oral 80 b.i.d. Contin ue metolazone and spironolactone and we will continue to monitor. If kidney function stay stable, e patient okay to be discharged hopefully by tomorrow. 2.Hypertension, controlled, optimal. We will continue to utilize blood pressure for more diuresis. 3.Anasarca secondary to pulmonary hypertension and body habit. I am going to go ahead and optimize fluid status as above. We will continue diuresis and follow up with Cardiology. I agree with adding levothyroxine. 4.Diabetes as by primary. LIAT/MODL Voice ID: [id number] Report ID: [id number]
--- NOTE | 2024-04-08 12:51 | P.PN ---
Subjective Date of Service: 04/08/24 Chief Complaint: Shortness of breath Subjective: No new changes, No C/O voiced, Tolerating diet, Ambulating, Improving Review of Systems 10-point ROS is otherwise unremarkable Physical Examination - Vital Signs Temperature: 97.3 F Blood Pressure: 120/62 Pulse: 96 Respirations: 20 Pulse Ox (%): 92 - Physical Exam General: Alert, In no apparent distress HEENT: Atraumatic, PERRLA, EOMI Neck: Supple, JVD not distended Respiratory: Clear to auscultation bilaterally, Normal air movement Cardiovascular: Regular rate/rhythm, Normal S1 S2 Gastrointestinal: Normal bowel sounds, No tenderness Musculoskeletal: No tenderness Integumentary: No rashes Neurological: Normal speech, Normal tone, Normal affect Lymphatics: No axilla or inguinal lymphadenopathy - Studies Medications List Reviewed: Yes Assessment And Plan - Current Problems (Diagnosis) (1) Acute combined systolic and diastolic heart failure Current Visit: Yes Status: Acute Plan: Patient is morbidly obese and it is very hard to assess his volume status, noticed significant testicular swelling which can be a sign of fluid retention. (patient used to be on Bumex 2 mg po TID at home) advise to switch back to Bumex 2 mg po TID Continue Metolazone 2.5 mg daily Continue Spirnolactone Monitor and document input and output closely Monitor and correct electrolytes (K>4 and Mg>2) last Echo in [facility] on 11/2023 shows normal EF, diastolic dyfunction, moderate to severe TR with Pulmonary hypertension (2) Hypertension Current Visit: Yes Status: Acute Plan: BP is borderline, continue Midodrine and diuresis and monitor (3) PVD (peripheral vascular disease) Current Visit: Yes Status: Acute Plan: ASA 81 g daily Lipitor 40 mg daily (4) Atrial fibrillation Current Visit: Yes Status: Acute Plan: Currently rate controlled Continue Metoprolol 25 mg po BID Continue ASA
[2024-04-08] MEDS: SOD FERRIC GLUC COMPLX/SUCROSE 250 MG in NA CHLORIDE 0.9% 250 ML IV SCH (13:24)
--- NOTE | 2024-04-08 15:50 | P.PN ---
Subjective Date of Service: 04/08/24 Chief Complaint: Shortness of breath Patient denies any new complaint and looking forward to go home soon. He denies any orthopnea. Scrotum is still swollen. Physical Examination - Vital Signs Temperature: 97.3 F Blood Pressure: 120/62 Pulse: 96 Respirations: 20 Pulse Ox (%): 92 - Studies Medications List Reviewed: Yes Assessment And Plan - Plan Physical Exam: GEN: Alert, oriented, NAD, morbidly obese CV: irregularly irregular rhythm, abdominal wall edema, scrotal edema. Pulm: diminished bilaterally, clear to auscultation bilateral, no rhonchi. ABD: Soft, nontender, obese abdomen. Genitourinary: Edematous scrotum Skin: Areas of skin xerosis on suprapubic area of abdomen and bilateral thighs. vitals reviewed Problem List: acute on chronic combined systolic/diastolic CHF exacerbation Acute on chronic cor pulmonale Hx PVD, s/p Left BKA and Right AKA chronic a-fib. 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 Anasarca has improved with IV Lasix drip and metolazone. Fluid restriction to 2 L/day. Low-salt diet reemphasized. Nephrology and cardiology are following and assisting with management Recent TTE (02/11/24): LV appears low normal, but apex foreshortened. RV significantly enlarged with decreased systolic function. RA size moderately dilated. Continue spironolactone, Monitor renal fxn / BP strict i/o's Lasix drip transition to oral Bumex. Continue metolazone. chronic a-fib has history of chronic a-fib. Previously on eliquis reportedly stopped eliquis on his own accord a few months ago after he developed "profuse bleeding" per patient. Continue Sotalol. Metoprolol discontinued due to hypotension. ?hx urinary retention per outside recs: had dumont placed initially for strict I/Os at [facility] during his last hospitalization. Was started on flomax 0.4 mg 02/16 after dumont was removed. continue purewick for now; Dumont accidentally removed 04/04 when changing patients beds. Fungal dermatitis continue nystatin topical ERICA on CKD2-3 creatinine ranges from 1.7-2 since November Renal function has improved to baseline Lasix drip transition to oral Bumex. Nephrology is following. Intermittent albumin infusion as needed. Recent Bacteriuria During his hospitalization at [facility] in mid February (02/08-02/18) urine culture had grown Staph empidermidis ID was consulted. Sepsis was ruled out. Patient completed 5 days of linezolid for possible UTI. Blood cultures were without growth at the time. no evidence of active infxn. afebrile. No luekocytosis. Hx Liver Cirrhosis outside CT from 2022 noted cirrhotic morphology of liver Continue Lasix and spironolactone Midodrine as needed for hypotension. IDDM2 with neuropathy, retinopathy accu-cheks, SSI Blood sugar readings are within acceptable range. Hypertension Hold home antihypertensives due to borderline low BP. Obstructive sleep apnea / COPD unable to tolerable CPAP in past Bronchodilators as needed. VTE: lovenox Code: Full Dispo: Home. Time Spent Managing Pts Care (In Minutes): 43
[2024-04-08] MEDS: BUMETANIDE 1 MG TABLET PO SCH (21:27)
[2024-04-09 04:57] LABS: Anion Gap 6.8 mEq/L (5.0-15.0); Potassium 3.8 mEq/L (3.5-5.1)
[2024-04-09 09:32] VITALS: O2SAT 98
--- NOTE | 2024-04-09 09:58 | P.PN ---
Subjective Date of Service: 04/09/24 Chief Complaint: Shortness of breath Subjective: No new changes, No C/O voiced, Tolerating diet, Ambulating, Improving Review of Systems 10-point ROS is otherwise unremarkable Physical Examination - Vital Signs Temperature: 97.4 F Blood Pressure: 129/72 Pulse: 108 Respirations: 20 Pulse Ox (%): 95 - Physical Exam General: Alert, In no apparent distress HEENT: Atraumatic, PERRLA, EOMI Neck: Supple, JVD not distended Respiratory: Clear to auscultation bilaterally, Normal air movement Cardiovascular: Regular rate/rhythm, Normal S1 S2 Gastrointestinal: Normal bowel sounds, No tenderness Musculoskeletal: No tenderness Integumentary: No rashes Neurological: Normal speech, Normal tone, Normal affect Lymphatics: No axilla or inguinal lymphadenopathy - Studies Microbiology Data (last 24 hrs): 04/03/24 22:48 Blood - Blood Aerobic Blood Culture - Final No growth in 5 days. 04/03/24 22:48 Blood - Blood Anaerobic Blood Culture - Final No growth in 5 days. 04/03/24 22:30 Blood - Blood Aerobic Blood Culture - Final No growth in 5 days. 04/03/24 22:30 Blood - Blood Anaerobic Blood Culture - Final No growth in 5 days. Medications List Reviewed: Yes Assessment And Plan - Current Problems (Diagnosis) (1) Acute combined systolic and diastolic heart failure Current Visit: Yes Status: Acute Plan: Patient is morbidly obese and it is very hard to assess his volume status, noticed significant testicular swelling which can be a sign of fluid retention. (patient used to be on Bumex 2 mg po TID at home) agree with Bumex 4 mg po BID Continue Metolazone 2.5 mg daily Continue Spirnolactone Monitor and document input and output closely Monitor and correct electrolytes (K>4 and Mg>2) last Echo in [facility] on 11/2023 shows normal EF, diastolic dyfunction, moderate to severe TR with Pulmonary hypertension (2) Hypertension Current Visit: Yes Status: Acute Plan: BP is borderline, continue Midodrine and diuresis and monitor (3) PVD (peripheral vascular disease) Current Visit: Yes Status: Acute Plan: ASA 81 g daily Lipitor 40 mg daily (4) Atrial fibrillation Current Visit: Yes Status: Acute Plan: Start Metoprolol 25 mg po BID Continue ASA
[2024-04-09 11:19] LABS: KAPPA LIGHT CHAIN, FREE SERUM 313.2 mg/L (3.3-19.4); LAMBDA LIGHT CHAIN, FREE SERUM 159.4 mg/L (5.7-26.3)
[2024-04-09] MEDS: METOPROLOL TAR 25 MG TAB PO ONE (12:39)
--- NOTE | 2024-04-09 13:21 | P.DS ---
Admission Date: 04/04/24 Discharge Date: 04/09/24 Disposition: ROUTINE DISCHARGE Discharge Condition: FAIR Reason for Admission: Shortness of breath Brief History of Present Illness: 48-year-old male with history of morbid obesity, hypertension, DM, CHF previously follows with cardiology at [facility] but currently only follows with PCP in [place], history of PVD status post left BKA and right AKA, on chronic diuretics with metolazone and Bumex presented to the ER because of progressive body swelling and shortness of breath. Patient activated EMS. Patient reported compliance with his diuretics. He was recently prescribed Flomax. He self discontinued the Flomax because he felt his body swelling is related to the Flomax. On arrival in the ED, he was noted with low O2 sat in the upper 80s requiring supplemental 2 L oxygen to achieve 95%. Chest x-ray shows marked cardiomegaly with bilateral haziness consistent with pulmonary edema. Laboratory workup shows normal troponin with CPK of 448, proBNP was 928, CBC was unremarkable except for hemoglobin of 9.2, CRP elevated, lactic acid normal at 0.9, BMP shows severe hypokalemia 2.6 with creatinine of 1.8previous was 1.77 about 1-month ago. Patient was admitted for further management of acute CHF exacerbation. Hospital Course: Patient was admitted to the medical floor and the following medical problems addressed: Diagnosis acute on chronic combined systolic/diastolic CHF exacerbation Acute on chronic cor pulmonale Hx PVD, s/p Left BKA and Right AKA A-fib with RVR Fungal dermatitis ERICA on CKD2-3 Recent Bacteriuria Hx Liver Cirrhosis IDDM2 with neuropathy, retinopathy Hypertension Obstructive sleep apnea / COPD ascute on chronic combined systolic/diastolic CHF exacerbation Acute on chronic cor pulmonale Pulmonary hypertension Hx PVD, s/p Left BKA and Right AKA Associated scrotal edema. Patient treated with IV Lasix drip and metolazone Anasarca improved with IV Lasix drip and metolazone. Fluid restriction to 2 L/day recommended. Low-salt diet reemphasized. Nephrology and cardiology saw patient and assisting with management Recent TTE (02/11/24): LV appears low normal, but apex foreshortened. RV significantly enlarged with decreased systolic function. RA size moderately dilated. Continued home spironolactone, Lasix drip transitioned to oral Bumex and titrated to 4 mg twice daily. Continued metolazone. Patient's anasarca and scrotal edema have improved he requested to go home today. He is prescribed Bumex 4 mg twice daily. He is informed to follow-up with nephrology for diuretic adjustments and renal function checks after discharge. A-fib with RVR has history of chronic a-fib. Previously on eliquis Patient reported profuse bleeding with Eliquis so he stopped taking it. Patient was treated with sotalol 80 mg twice daily Metoprolol held due to hypotension and resumed on discharge. ?hx urinary retention Patient was initially on Flomax but he stopped taking it. He had no problem with urination during the hospital stay. Fungal dermatitis Treated with nystatin topical ERICA on CKD2-3 creatinine ranges from 1.7-2 since November Renal function improved to baseline Lasix drip transition to oral Bumex. Patient seen and evaluated by nephrology. Recent Bacteriuria During his hospitalization at [facility] in mid February (02/08-02/18) urine culture had grown Staph empidermidis ID was consulted. Sepsis was ruled out. Patient completed 5 days of linezolid for possible UTI. Blood cultures were without growth at the time. Patient was afebrile with no evidence of active infection during the hospital stay. Hx Liver Cirrhosis outside CT from 2022 noted cirrhotic morphology of liver Continued spironolactone Midodrine as needed for hypotension. IDDM2 with neuropathy, retinopathy Managed with insulin sliding scale. Blood sugar readings were within acceptable range. Hypertension Hold home antihypertensives due to borderline low BP. Resumed metoprolol on discharge Obstructive sleep apnea / COPD Patient reported he has not CPAP in past. I discussed the benefits of CPAP for sleep apnea with him. Patient stated he has an appointment for another sleep study. Vital Signs/Physical Exam: Temp Pulse Resp BP Pulse Ox 97.1 F 102 H 20 124/81 94 04/09/24 12:00 04/09/24 12:39 04/09/24 12:00 04/09/24 12:39 04/09/24 12:00 General: Alert, In no apparent distress, Obese HEENT: Mucous membr. moist/pink Neck: Supple, JVD not distended Respiratory: Diminished (Bilateral), Other (No rhonchi or rales) Cardiovascular: Normal S1 S2, Edema (Bilateral thigh), Irregular heart rate/rhythm Gastrointestinal: Soft and benign, Other (Obese abdomen) Integumentary: Other (Bilateral thigh skin xerosis, anterior abdominal wall skin xerosis.) Laboratory Data at Discharge: WBC 4.90 thou/uL (4.3-10.9) 04/08/24 05:45 Hgb 9.0 g/dL (13.6-17.9) L 04/08/24 05:45 Hct 28.3 % (39.6-49.0) L 04/08/24 05:45 Plt Count 166 thou/uL (152-406) 04/08/24 05:45 PT 13.9 SECONDS (9.4-12.5) H 04/03/24 22:48 INR 1.25 04/03/24 22:48 APTT 34.1 SECONDS (24.3-36.9) 04/03/24 22:48 Sodium 136 mEq/L (136-145) 04/09/24 04:15 Potassium 3.8 mEq/L (3.5-5.1) 04/09/24 04:15 BUN 56 mg/dL (7-18) H 04/09/24 04:15 Creatinine 1.93 mg/dL (0.70-1.30) H 04/09/24 04:15 Glucose 143 mg/dL (74-106) H 04/09/24 04:15 Uric Acid 14.7 mg/dL (3.5-7.2) H 04/08/24 05:45 Phosphorus 3.0 mg/dL (2.5-4.9) 04/09/24 04:15 Magnesium 1.8 mg/dL (1.6-2.4) 04/08/24 05:45 Total Bilirubin 0.6 mg/dL (0.2-1.0) 04/06/24 04:41 AST 35 U/L (15-37) 04/06/24 04:41 ALT 15 U/L (16-61) L 04/06/24 04:41 Alkaline Phosphatase 57 U/L (45-117) 04/06/24 04:41 Home Medications: Insulin Degludec [Tresiba] 80 unit SQ DAILY PRN 04/04/24 Pregabalin [Lyrica*] 75 mg PO TID 04/04/24 Bumetanide [Bumex] 4 mg PO DAILY #120 tab 04/09/24 Hydrocodone 5/APAP 325 [Marion 5/325*] 1 tab PO Q6H PRN #15 tab 04/09/24 Levothyroxine Sodium 25 mcg PO DAILY #30 tab 04/09/24 Metoprolol Tartrate [Lopressor*] 25 mg PO DAILY #30 tab 04/09/24 Midodrine HCl [Proamatine*] 10 mg PO TIDWM PRN #30 tab 04/09/24 Nystatin Powder [Mycostatin (Powder)*] 1 appl TOP BID #1 bottle 04/09/24 Potassium Oral Tab [Klor-Con 10 mEq Tab*] 20 meq PO Q12HR #30 tab 04/09/24 Spironolactone 50 mg PO DAILY #30 tab 04/09/24 metOLazone [Zaroxolyn*] 2.5 mg PO DAILY #30 tab 04/09/24 New Medications: Potassium Oral Tab [Klor-Con 10 mEq Tab*] 20 meq PO Q12HR #30 tab Bumetanide [Bumex] 4 mg PO DAILY #120 tab Levothyroxine Sodium 25 mcg PO DAILY #30 tab Metoprolol Tartrate [Lopressor*] 25 mg PO DAILY #30 tab Nystatin Powder [Mycostatin (Powder)*] 1 appl TOP BID #1 bottle Hydrocodone 5/APAP 325 [Marion 5/325*] 1 tab PO Q6H PRN #15 tab PRN Reason: Pain Scale 5-7 (Moderate) Midodrine HCl [Proamatine*] 10 mg PO TIDWM PRN #30 tab PRN Reason: Low BP Spironolactone 50 mg PO DAILY #30 tab metOLazone [Zaroxolyn*] 2.5 mg PO DAILY #30 tab Physician Discharge Instructions: Fluid restriction to 2000 ml/day Diet: AHA Activity: Ad andres Followup: Kris Song MD [ACTIVE - CAN ADMIT] - 1 Week OMEIR THOMAS [Primary Care Provider] - 1-2 Weeks Time spent managing pt's care (in minutes): 40
[2024-04-09 13:51] LABS: Abnormal Protein Band 1 REPORT; Albumin, (SPE) 2.2 g/dL (3.8-4.8); Alpha-1-Globulins 0.4 g/dL (0.2-0.3); Alpha-2-Globulins 0.6 g/dL (0.5-0.9); Beta 1 Globulin 0.4 g/dL (0.4-0.6); Gamma Globulins 2.1 g/dL (0.8-1.7); INTERPRETATION REPORT
--- NOTE | 2024-04-09 14:02 | PN ---
Date of Progress Note: 04/09/2024 Subjective: The patient was admitted with congestive heart failure with exacerbation, diastolic dysf unction with anasarca. The patient was diuresed on Lasix drip, responding very well, with acute kidn ey injury recovered. Yesterday, we switched the patient to oral, responding. Objective: Vital Signs: Blood pressure 129/72, pulse of 108, afebrile. Chest: Decreased entry, bilateral base. General: Morbidly obese. Heart: S1, S2. Regular. Abdomen: Morbidly obese. Could not appreciate any organomegaly. Extremities: Bilateral amputee above the knee. Neurologic: Alert. No focality. Laboratory Data: Hemoglobin 9, sodium 136, potassium 3.8, bicarb 35, BUN 56, creatinine 1.9, calcium 8.6, phosphorus 3, albumin 2, corrected calcium 10.4. Current Medications: The patient on Bumex 4 mg b.i.d., nystatin, midodrine 10 t.i.d., IV iron, Loven ox, spironolactone 50, Lyrica, metolazone 2.5 daily, Pepcid, Zofran, levothyroxine. Assessment And Plan: 1.Acute kidney injury on chronic kidney disease secondary to cardiorenal, recovered, back to baselin e, on the overvolume side. I am going to continue current dose of Bumex, metolazone, and spironolact one. Patient cleared from the Renal standpoint for discharge planning. To follow up in the office i n 2-3 weeks. Patient educated about fluid restriction and diuresis. 2.Hypertension. Continue to utilize blood pressure for more diuresis. I am going to go ahead and d ecrease his midodrine to 5 mg. Continue Bumex 4 mg b.i.d. and metolazone with spironolactone. 3.Anasarca secondary to pulmonary hypertension, hypothyroidism, and congestive heart failure, diasto lic. Continue diuresis as above. 4.Hypokalemia, status post supplement, resolved. 5.Hyponatremia, dilutional. Continue diuresis. 6.Iron-deficiency anemia. Continue IV iron. 7.Diabetes, as by Primary. LIAT/SIMON Voice ID: [id number] Report ID: [id number]
[2024-04-09] MEDS: MIDODRINE HCL 5 MG TABLET PO SCH (16:48)
[2024-04-09 20:47] VITALS: BP 122/63; TEMP 97.3
[2024-04-12 20:45] LABS: Beta Globulin 24 HR Urine 0 %; Creatinine 24 Hour Urine 2.41 g/24 h (0.50-2.15); Gamma Globulin, 24hr Urine 0 %; Interpretation: REPORT; Protein/Crea Ratio in g 166 mg/g creat (<100); Protein/Crea Ratio in mg 0.166 (<0.100); Urine Albumin 24 Hours REPORT; Urine Alpha-1-Globulin, 24Hr 0 %; Urine Alpha-2-Globulins, 24 Hr 0 %; Urine PEP Abn Protein Band1 REPORT; Urine Total Volume 24 Hours 8000 mL
== END 2024-04-09 21:29 | disposition home or self-care (01) | DRG 291 ==
LOC: ER 21:41 → ERHOLD 04-04 00:33 → 2ND 04-04 04:08
PROVIDERS: ADMIT Internal Medicine; ATTEND Internal Medicine
PROC: 02HV33Z Insertion of Infusion Device into Superior Vena Cava, Percutaneous Approach (ICD-10-PCS; principal; 2024-04-04)
DX: I13.0 Hypertensive heart and chronic kidney disease with heart failure and stage 1 through stage 4 chronic kidney disease, or unspecified chronic kidney disease (principal); I50.43 Acute on chronic combined systolic (congestive) and diastolic (congestive) heart failure; J96.90 Respiratory failure, unspecified, unspecified whether with hypoxia or hypercapnia; Z68.45 Body mass index [BMI] 70 or greater, adult; I48.20 Chronic atrial fibrillation, unspecified; N17.9 Acute kidney failure, unspecified; E87.1 Hypo-osmolality and hyponatremia; E66.01 Morbid (severe) obesity due to excess calories; N18.30 Chronic kidney disease, stage 3 unspecified; E11.22 Type 2 diabetes mellitus with diabetic chronic kidney disease; E11.51 Type 2 diabetes mellitus with diabetic peripheral angiopathy without gangrene; E11.40 Type 2 diabetes mellitus with diabetic neuropathy, unspecified; E11.319 Type 2 diabetes mellitus with unspecified diabetic retinopathy without macular edema; D63.1 Anemia in chronic kidney disease; D50.9 Iron deficiency anemia, unspecified; E87.6 Hypokalemia; E78.5 Hyperlipidemia, unspecified; E03.9 Hypothyroidism, unspecified; E83.42 Hypomagnesemia; I27.20 Pulmonary hypertension, unspecified; K74.60 Unspecified cirrhosis of liver; G47.33 Obstructive sleep apnea (adult) (pediatric); N13.9 Obstructive and reflux uropathy, unspecified; J44.9 Chronic obstructive pulmonary disease, unspecified; B35.6 Tinea cruris; B35.4 Tinea corporis; B36.9 Superficial mycosis, unspecified; Z88.0 Allergy status to penicillin; Z88.1 Allergy status to other antibiotic agents; Z79.4 Long term (current) use of insulin; Z74.01 Bed confinement status; Z79.899 Other long term (current) drug therapy; Z89.512 Acquired absence of left leg below knee; Z89.511 Acquired absence of right leg below knee; Z87.891 Personal history of nicotine dependence
CPT/HCPCS: 36415; 36556; 51702; 71045; 76770; 80048; 80053; 80069; 81003; 82550; 82570; 82607; 82728; 82947; 83520; 83540; 83605; 83735; 83880; 84100; 84132; 84156; 84165; 84166; 84300; 84439; 84443; 84466; 84484; 84550; 85025; 85044; 85610; 85730; 86140; 86334; 87040; 93005; 93306; 96374; 96375; 99285; J0692; J0696; J1170; J1650; J1940; J2270; J2405; J2916; J3475; J3480; J7050; P9045; P9047